=== PATIENT | male | born 1965 | race Caucasian/White ===

== ENCOUNTER 2023-09-17 08:56 | Outpatient (OUT) | payer OTHER, SELFPAY ==
--- NOTE | 2023-09-17 09:05 | XR_ITS ---
The [address] [address] Patient Name: DIPESH RODRIGEZ MRN: [id number] date: 1965 Sex: M Assigned Patient Location: [facility] Current Patient Location: LAB Accession/Order Number: [id number] Exam Date: 09/17/2023 09:10 Report Date: 09/17/2023 09:41 At the request of: JADEN WOLFE Procedure: XR abdomen 1V EXAM: XR abdomen 1V HISTORY: Kidney Stone Z87.442 COMPARISON: None. TECHNIQUE: AP view of the abdomen. FINDINGS: Nonobstructive bowel gas pattern is noted. There are multiple bilateral renal calculi, largest on the right measuring up to 5 mm and largest on the left measuring up to 3 mm. The osseous structures are intact. XR/XR abdomen 1V IMPRESSION: Nonobstructive bowel gas pattern. Bilateral nephrolithiasis. Electronically authenticated by: IVANA GERBER Date: 09/17/2023 09:41
== END 2023-09-17 08:57 | disposition home or self-care (01) ==
PROVIDERS: PCP Family Medicine; Visit Provider Urology
DX: N20.0 Calculus of kidney (principal); Z87.442 Personal history of urinary calculi
CPT/HCPCS: 74018

== ENCOUNTER 2023-10-04 11:14 | Outpatient (REF) | payer OTHER, SELFPAY ==
[2023-10-04 14:54] LABS: Calcium Urine Random 5.6 mg/dL (5.1-21.0); Creatinine Urine Random 48.01 mg/dL (20.00-300.00); Sodium Urine Random 77 mmol/L (30-90)
[2023-10-04 14:58] LABS: Calcium 24 Hour Urine 170.8 mg/24hr (100.0-300.0); Total Volume 24 Hour Urine 3050 mL/24hr
[2023-10-04 14:59] LABS: Sodium 24 Hour Urine 235 mmol/24h (40-220); Total Volume 24 Hour Urine 3050 mL/24hr
[2023-10-05 08:12] LABS: Uric Acid, Urine 18.4 mg/dL (Not Estab.); Uric Acid,Urine 24hr 561.2 mg/24 hr (197.2-1078.7)
[2023-10-05 10:08] LABS: Magnesium, U 8.5 mg/dL (Not Estab.); Magnesium,Urine 24hr 259.3 mg/24 hr (12.0-293.0); Phosphorus, Urine 18.5 mg/dL (Not Estab.); Phosphorus,Urine 24h 564 mg/24 hr (390-1425)
[2023-10-08 17:09] LABS: Citric Acid, U, 24hr 467 mg/24 hr (320-1240); Citric Acid, Urine 153 mg/L (Undefined); Oxalates, Urine 8 mg/L (Undefined); Oxalates, Urine 24hr 24 mg/24 hr (7-44)
== END 2023-10-04 11:15 | disposition home or self-care (01) ==
LOC: LAB 11:14
PROVIDERS: PCP Family Medicine; Visit Provider Urology
DX: N20.0 Calculus of kidney (principal)
CPT/HCPCS: 82340; 82507; 82570; 83735; 83945; 84105; 84300; 84560

== ENCOUNTER 2025-10-22 07:35 | Outpatient (OUT) | payer OTHER, SELFPAY ==
--- NOTE | 2025-10-22 07:52 | ECG_ITS ---
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
--- NOTE | 2025-10-22 08:53 | PM.PRESUREVA ---
History of Present Illness History of Present Illness Chief complaint: right kidney stone Narrative: Patient presents for presurgical testing. Please see HPI from Dr. Jara dated October 15, 2025. Review of Systems ROS Narrative Please see ROS from Dr. Jara dated October 15, 2025. PFSH PFS Medical History (Updated 10/22/25 @ 08:42 by Jessica Banks NP) Neck pain ?M54.2 - Cervicalgia (ICD-10) Back pain ?M54.9 - Dorsalgia, unspecified (ICD-10) Arthritis ?M19.90 - Unspecified osteoarthritis, unspecified site (ICD-10) Shoulder pain ?M25.519 - Pain in unspecified shoulder (ICD-10) History of blood transfusion ?Z92.89 - Personal history of other medical treatment (ICD-10) Hernia ?K46.9 - Unspecified abdominal hernia without obstruction or gangrene (ICD-10) Heartburn ?R12 - Heartburn (ICD-10) Abnormal EKG ?R94.31 - Abnormal electrocardiogram [ECG] [EKG] (ICD-10) Hypertension ?I10 - Essential (primary) hypertension (ICD-10) High cholesterol ?E78.00 - Pure hypercholesterolemia, unspecified (ICD-10) Diabetes ?E11.9 - Type 2 diabetes mellitus without complications (ICD-10) PONV (postoperative nausea and vomiting) ?R11.2 - Nausea with vomiting, unspecified (ICD-10) ?Z98.890 - Other specified postprocedural states (ICD-10) Crohn disease ?K50.90 - Crohn's disease, unspecified, without complications (ICD-10) Right shoulder injury ?S49.91XA - Unspecified injury of right shoulder and upper arm, initial encounter (ICD-10) Mass of colon ?K63.89 - Other specified diseases of intestine (ICD-10) Elevated PSA ?R97.20 - Elevated prostate specific antigen [PSA] (ICD-10) BPH (benign prostatic hyperplasia) ?N40.0 - Benign prostatic hyperplasia without lower urinary tract symptoms (ICD-10) Kidney stones ?N20.0 - Calculus of kidney (ICD-10) Surgical History (Updated 10/22/25 @ 08:42 by Jessica Banks NP) H/O vasectomy ?Z98.52 - Vasectomy status (ICD-10) H/O prostate biopsy ?Z98.890 - Other specified postprocedural states (ICD-10) History of colonoscopy ?Z98.890 - Other specified postprocedural states (ICD-10) H/O umbilical hernia repair ?Z98.890 - Other specified postprocedural states (ICD-10) ?Z87.19 - Personal history of other diseases of the digestive system (ICD-10) H/O foot surgery ?Z98.890 - Other specified postprocedural states (ICD-10) History of total knee arthroplasty ?Z96.659 - Presence of unspecified artificial knee joint (ICD-10) H/O elbow surgery ?Z98.890 - Other specified postprocedural states (ICD-10) H/O shoulder surgery ?Z98.890 - Other specified postprocedural states (ICD-10) S/P cystoscopy with ureteral stent placement ?Z96.0 - Presence of urogenital implants (ICD-10) History of extracorporeal shockwave lithotripsy (ESWL) ?Z98.890 - Other specified postprocedural states (ICD-10) History of carpal tunnel surgery ?Z98.890 - Other specified postprocedural states (ICD-10) History of repair of anterior cruciate ligament of left knee ?Z98.890 - Other specified postprocedural states (ICD-10) H/O hand surgery (~2018) ?Z98.890 - Other specified postprocedural states (ICD-10) H/O excision of mass (~2019) ?Z98.890 - Other specified postprocedural states (ICD-10) Family History (Updated 10/22/25 @ 08:40 by Jessica Banks NP) Other Family history of heart disease Family history of hypertension Family history of myocardial infarction Family history of skin cancer Social History (Updated 10/22/25 @ 08:34 by Jessica Banks NP) Within the past year, how often did you have a drink containing alcohol: never Score interpretation: A score less than 4 is consistent with normal alcohol consumption. 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 Highest level of school completed/degree received: high school graduate Meds Home Medications and Allergies Home Medications ?Medication ?Instructions ?Recorded ?Confirmed ?Type allopurinol 100 mg tablet 100 mg PO DAILY 10/22/25 10/22/25 History amlodipine 10 mg tablet 10 mg PO DAILY 10/22/25 10/22/25 History aspirin 81 mg tablet,delayed 81 mg PO DAILY 10/22/25 10/22/25 History release (Adult Aspirin Regimen) atorvastatin 20 mg tablet 20 mg PO DAILY 10/22/25 10/22/25 History cholecalciferol (vitamin D3) 50 2,000 unit PO DAILY 10/22/25 10/22/25 History mcg (2,000 unit) capsule dapagliflozin propanediol 10 mg 10 mg PO DAILY 10/22/25 10/22/25 History tablet (Farxiga) gabapentin 600 mg tablet 900 mg PO Q8H 10/22/25 10/22/25 History glucosamine-chondroitin 250 mg-200 2 tab PO DAILY 10/22/25 10/22/25 History mg tablet losartan 100 1 tab PO DAILY 10/22/25 10/22/25 History mg-hydrochlorothiazide 12.5 mg tablet multivitamin (One-A-Day Essential 1 tab PO DAILY 10/22/25 10/22/25 History tablet) potassium 99 mg tablet 99 mg PO DAILY 10/22/25 10/22/25 History tamsulosin 0.4 mg capsule 0.4 mg PO BID 10/22/25 10/22/25 History zinc 50 mg capsule 50 mg PO DAILY 10/22/25 10/22/25 History Allergies Allergy/AdvReac Type Severity Reaction Status Date / Time metformin Allergy Diarrhea Verified 10/22/25 08:31 Exam Narrative Exam Narrative: Constitutional: Awake, alert, comfortable, well-appearing, nontoxic, interactive, vital signs as charted Head: Normocephalic, atraumatic Neck: Supple, normal appearance, normal range of motion, no meningeal signs, no lymphadenopathy Respiratory: No respiratory distress, breath sounds clear Cardiovascular: Regular rate and rhythm, strong and regular heart tones Abdomen: Nontender, normal bowel sounds, soft, no CVA tenderness Musculoskeletal: Normal gait, no swelling or edema Skin: No rashes or induration, no lesions, only visible skin inspected Neuro: No neurological deficits, normal sensation Psychiatric: Oriented ?3, normal affect Assessment and Plan Assessment and Plan (1) Kidney stones: Plan Right ESWL scheduled with Dr. Jara October 30, 2025. Left ESWL scheduled with Dr. Jara November 15, 2025.
[2025-10-22 09:15] LABS: Hematocrit 44.1 % (42.0-54.0); Hemoglobin 15.2 g/dL (14.0-18.0); Immature Granulocytes Abs Auto 0.01 10^3/uL (0.00-0.03); Immature Granulocytes Pct Auto 0.1 % (0.0-0.5); Lymphocytes Absolute Auto 2.0 10^3/uL (1.2-3.8); Mean Corpuscular HGB Conc 34.5 g/dL (29.9-35.2); Mean Corpuscular Hemoglobin 33.1 pg (25.9-34.0); Mean Corpuscular Volume 96.1 fL (80.0-94.0); Platelet Count 201 10^3/uL (150-450); Red Blood Count 4.59 10^6/uL (4.70-6.10); White Blood Count 8.0 10^3/uL (4.0-11.0)
[2025-10-22 09:25] LABS: INR 1.04; Partial Thromboplastin Time 27.9 sec (22.3-36.2); Prothrombin Time 10.9 sec (9.0-11.6)
[2025-10-22 09:51] LABS: Anion Gap 11.4; Blood Urea Nitrogen 15.0 mg/dL (7.0-18.0); Calcium 9.2 mg/dL (8.5-10.1); Carbon Dioxide 27.7 mmol/L (21.0-32.0); Chloride 106 mmol/L (98-107); Estimated GFR (African America >60 (>=60 mL/min/1.73m^2); Estimated GFR (Non-African Ame >60 (>=60 mL/min/1.73m^2); Glucose 119 mg/dL (74-106); Potassium 4.1 mmol/L (3.5-5.1); Sodium 141 mmol/L (136-145)
== END 2025-10-22 07:36 | disposition home or self-care (01) ==
LOC: PST 07:35
PROVIDERS: PCP Family Medicine; Visit Provider Urology
DX: Z01.810 Encounter for preprocedural cardiovascular examination (principal); Z01.812 Encounter for preprocedural laboratory examination; Z01.818 Encounter for other preprocedural examination; N20.0 Calculus of kidney
CPT/HCPCS: 36415; 80048; 85025; 85610; 85730; 93005; G0463

== ENCOUNTER 2025-10-22 09:26 | Outpatient (OUT) | payer OTHER, SELFPAY | END 2025-10-22 09:27 | disposition home or self-care (01) | LOC: PST 09:26 | PROVIDERS: PCP Family Medicine; Visit Provider Urology | DX: Z01.818 Encounter for other preprocedural examination (principal); N20.0 Calculus of kidney; E11.9 Type 2 diabetes mellitus without complications; I10 Essential (primary) hypertension; N40.0 Benign prostatic hyperplasia without lower urinary tract symptoms; R97.20 Elevated prostate specific antigen [PSA] ==

== ENCOUNTER 2025-10-30 06:43 | Day surgery (SDC) | payer OTHER, SELFPAY ==
--- OUTSIDE RECORDS SUMMARY | 2025-10-15 23:59 | XMS_ITS | Continuity of Care Document ---
Author Organization [facility] Address [address] [place] [address] Care Team Providers Care T Rail Turner Name Role Phone JASON ROBLERO Primary Care Physician Unavail able Encounter FT_PALLAVI [id number] Date(s): 10/15/25 - 10/15/25 [facility] [address] [place] [address]- Encounter Diagnosis Elevated PSA(Discharge Diagnosis) - 10/15/25 Kidney stones(Discharge Diagnosis) - 10/15/25 BPH with urinary obstruction(Discharge Diagnosis) - 10/15/25 Discharge Disposition: Home (Routine DC) Attending Physician: Shady WOLFE MD Encounter Type: Clinic Allergies, Adverse Reactions, Alerts SubstanceCriticalitySeverityReactionReaction SeverityStatusmetFORMINUnknown Active Treatment Plan Future Appointments Appointment Date:10/21/2026 08:45:00 AM Scheduled Provider:Shady WOLFE MD Location:[facility] Appointment Type:URO Office Visit Diagnostic Tests Pending * PSA Total 10/15/25 Medications allopurinol 100 mg Tab 100 mg = 1 tab(s), Oral, BID, Refills(s) 0, Other (see comment) Start Date: 11/08/01 Status: Ordered Medication Dispense Status: Completed Total Allowed Fills: 1 Fills Dispensed: 0 amLODIPine 10 mg Tab mg tab(s), Oral, Daily, Refills(s) 0 Start Date: 09/22/21 Status: Ordered Medication Dispense Status: Completed Total Allowed Fills: 1 Fills Dispensed: 0 atorvastatin 20 mg Tab mg tab(s), Oral, Daily, Refills(s) 0 Start Date: 09/22/21 Status: Ordered Medication Dispense Status: Completed Total Allowed Fills: 1 Fills Dispensed: 0 glipiZIDE 10 mg Tab 10 mg = 1 tab(s), Oral, Daily, Refills(s) 0, Blood glucose Start Date: 11/08/09 Status: Ordered Medication Dispense Status: Completed Total Allowed Fills: 1 Fills Dispensed: 0 hydrochlorothiazide-losartan 12.5 mg-100 mg oral tablet 1 tab(s), Oral, Daily, Refill(s) 0, High blood pressure Start Date: 11/08/13 Status: Ordered Medication Dispense Status: Completed Total Allowed Fills: 1 Fills Dispensed: 0 melatonin Once a day (at bedtime), Refills(s) 0 Start Date: 09/22/21 Status: Ordered Medication Dispense Status: Completed Total Allowed Fills: 1 Fills Dispensed: 0 meloxicam 15 mg oral tablet mg tab(s), Oral, Daily, Refills(s) 0 Start Date: 09/22/21 Status: Ordered Medication Dispense Status: Completed Total Allowed Fills: 1 Fills Dispensed: 0 Osteo Bi-Flex Refill(s) 0 Start Date: 09/22/21 Status: Ordered Medication Dispense Status: Completed Total Allowed Fills: 1 Fills Dispensed: 0 pioglitazone Oral, Daily, Refills(s) 0 Start Date: 08/11/19 Status: Ordered Medication Dispense Status: Completed Total Allowed Fills: 1 Fills Dispensed: 0 tamsulosin 0.4 mg Cap 0.4 mg = 1 cap(s), Oral, BID, # 180 cap(s), Refills(s) 3, Pharmacy: [facility] [id number], 182, cm, 10/15/25 9:57:00 EST, Height/Length Dosing, 110, kg, 10/15/25 9:57:00 EST, Weight Dosing Start Date: 10/15/25 Status: Ordered Medication Dispense Status: Completed Quantity: 180.0 Unit: cap(s) Total Allowed Fills: 4 Fills Dispensed: 0 Vitamin C Daily, Refills(s) 0 Start Date: 09/22/21 Status: Ordered Medication Dispense Status: Completed Total Allowed Fills: 1 Fills Dispensed: 0 Problem List ConditionConfirmationCourseEffective DatesStatusHealth StatusInformantArthritis ConfirmedActiveBPH (benign prostatic hyperplasia)ConfirmedActiveBPH with urinary obstructionConfirmedActiveDiabetesConfirmedActiveGross hematuriaConfirmed< 05/12/19ResolvedHistory of kidney stonesConfirmed< 05/12/19ResolvedPersonal history of kidney stonesConfirmedActiveHypertensionConfirmedActiveRenal stoneConfirmed ActiveKidney stonesConfirmedActiveMicroscopic hematuriaConfirmedActiveNocturia ConfirmedActiveProstatitisConfirmedActiveElevated PSAConfirmedActiveUrinary retentionConfirmed< 05/12/19Resolved Procedures ProcedureDateRelated DiagnosisBody SiteStatusArthroplasty of knee right04/12/24 CompletedRepair of umbilical jcamrx84/2023CompletedTransrectal biopsy of prostate using ultrasound (US) guidance02/01/18CompletedStone Trheyorsuboq01/1/10 CompletedESWL of lgjoam48/13/09CompletedBunionectomy left footCompletedClosed xzgxitnpzjluilxtDkexgajwyIrswhhzrjkwOuzvnmgicArjyegcubi8BrkprdankXtfelsen injury 2CompletedVasectomyCompleted 1Ureteroscopy, Holmium Laser x5 2Following pelvic crush injury Social History Social History TypeResponseSmoking StatusNever (less than 100 in lifetime);Never entered on: 10/15/25Birth SexMaleSex RepresentationMale (finding) Hospital Discharge Instructions Patient Education 10/15/2025 10:42:26 Laser Therapy for Kidney Stones, Care After Laser Therapy for Kidney Stones, Care After After laser therapy for kidney stones, it is common to have: ??? Pain. ??? A burning feeling when you pee (urinate). ??? Small amounts of blood in your pee (urine). ??? A need to pee a lot. ??? Parts of the kidney stone in your pee. ??? Mild discomfort in your back when you pee. You may have this if you had a small mesh tube (stent) placed during the procedure. Follow these instructions at home: Medicines ??? Take xblz-sxb-hljsujq and prescription medicines only as told by your health care provider. ??? If you were prescribed antibiotics, take them as told by your provider. Do not stop using the antibiotic even if you start to feel better. ??? Ask your provider if the medicine prescribed to you: ??? Requires you to avoid driving or using machinery. ??? Can cause constipation. You may need to take these actions to prevent or treat constipation: ??? Drink enough fluid to keep your pee pale yellow. ??? Take szaz-uqd-bviaogl or prescription medicines. ??? Eat foods that are high in fiber, such as beans, whole grains, and fresh fruits and vegetables. ??? Limit foods that are high in fat and processed sugars, such as fried or sweet foods. Activity ??? If you were given a sedative during the procedure, it can affect you for several hours. Do not drive or operate machinery until your provider says that it is safe. ??? Return to your normal activities as told by your provider. Ask your provider what activities are safe for you. General instructions ??? Your provider may recommend that you drink a lot of water for a few hours after your procedure.If you have heart or kidney disease, ask your provider how much you should drink. ??? You may be asked to strain your pee to collect any stone pieces that you pass. Your provider may have these pieces tested. ??? Do not take baths, swim, or use a hot tub until your provider approves. Ask your provider if you may take warm baths to soothe the burning. ??? Keep all follow-up visits. If you have a stent, you will need to go back to your provider to have it removed. Your provider may give you more instructions. Make sure you know what you can and cannot do. Contact a health care provider if: ??? You have pain or a burning feeling that lasts for more than 2 days. ??? You feel nauseous. ??? You vomit more and more often. ??? You have trouble peeing. ??? You have pain that gets worse or does not get better with medicine. ??? You have a fever or shaking chills. Get help right away if: ??? You cannot pee, even when your bladder feels full. ??? You faint. ??? You have chest pain, shortness of breath, or cough up blood. ??? You have: ??? Bright red blood or blood clots in your pee. ??? Severe pain or discomfort. ??? Pain in your abdomen. ??? Swelling in your legs. These symptoms may be an emergency. Get help right away. Call 911. ??? Do not wait to see if the symptoms will go away. ??? Do not drive yourself to the hospital. This information is not intended to replace advice given to you by your health care provider. Make sure you discuss any questions you have with your health care provider. Document Revised: 06/25/2023 Document Reviewed: 06/25/2023 [employer] Patient Education ?? 2023 [facility]. 10/15/2025 10:42:26 Laser Therapy for Kidney Stones Laser Therapy for Kidney Stones Laser therapy for kidney stones is a procedure to break up rock-like masses that form inside the kidneys (kidney stones). It is done using a device that beams a strong light (laser) on the kidney stones. This breaks the stones up into small pieces. These small pieces may leave your body when you pee (urinate) or may be taken out during the procedure. You may need laser therapy if you have kidney stones that are painful or that are stopping you frombeing able to pee. Tell a health care provider about: ??? Any allergies you have. ??? All medicines you are taking, including vitamins, herbs, eye drops, creams, and mnzi-lwa-wavukph medicines. ??? Any problems you or family members have had with anesthesia. ??? Any bleeding problems you have. ??? Any surgeries you have had. ??? Any medical conditions you have. ??? Whether you are or may be . What are the risks? Your health care provider will talk with you about risks. These may include: ??? Infection. ??? Bleeding. ??? Allergic reactions to medicines. ??? Damage to: ??? The part of your body that drains pee (urine) from the bladder (urethra). ??? The bladder. ??? The tube that connects the bladder to the kidneys (ureter). ??? Urinary tract infection (UTI). ??? Urethral stricture. This is when the urethra is narrowed by scarring. ??? Trouble peeing. ??? Blockage of the kidney. This may be caused by a piece of kidney stone. What happens before the procedure? When to stop eating and drinking Follow instructions from your provider about what you may eat and drink. These may include: ??? 8 hours before the procedure ??? Stop eating most foods. Do not eat meat, fried foods, or fatty foods. ??? Eat only light foods, such as toast or crackers. ??? All liquids are okay except energy drinks and alcohol. ??? 6 hours before the procedure ??? Stop eating. ??? Drink only clear liquids, such as water, clear fruit juice, black coffee, plain tea, and sportsdrinks. ??? Do not drink energy drinks or alcohol. ??? 2 hours before the procedure ??? Stop drinking all liquids. ??? You may be allowed to take medicines with small sips of water. ??? If you do not follow your provider's instructions, your procedure may be delayed or canceled. Medicines ??? Ask your provider about: ??? Changing or stopping your regular medicines. These include any diabetes medicines or blood thinners you take. ??? Taking medicines such as aspirin and ibuprofen. These medicines can thin your blood. Do not take them unless your provider tells you to. ??? Taking lubr-ddk-yfhbard medicines, vitamins, herbs, and supplements. Tests ??? You may have a physical exam before the procedure. You may also have tests done. These may include: ??? Imaging tests. ??? Blood or pee tests. Surgery safety ??? Ask your provider: ??? How your surgery site will be marked. ??? What steps will be taken to help prevent infection. These steps may include: ??? Removing hair at the surgery site. ??? Washing skin with a soap that kills germs. ??? Taking antibiotics. General instructions ??? Do not use any products that contain nicotine or tobacco for at least 4 weeks before the procedure. These products include cigarettes, chewing tobacco, and vaping devices, such as e-cigarettes. If you need help quitting, ask your provider. ??? If you will be going home right after the procedure, plan to have a responsible adult: ??? Take you home from the hospital or clinic. You will not be allowed to drive. ??? Care for you for the time you are told. What happens during the procedure? An IV will be inserted into one of your veins. ??? You will be given: ??? A sedative. This helps you relax. ??? Anesthesia. This keeps you from feeling pain. It will make you fall asleep for surgery. ??? A tool with a camera on the end (ureteroscope) will be put into your urethra. It will be moved through your bladder to your kidney. It will send pictures to a screen in the operating room. This will show what parts of your kidney need to be treated. ??? A tube will be put through the ureteroscope. It will be moved into your kidney. ??? The laser device will be put into your kidney through the tube. The laser will be used to breakup the kidney stones. ??? A tool with a tiny wire basket may be put through the tube into your kidney. This can help remove the small pieces of the kidney stone. ??? A small mesh tube (stent) may be placed to allow your kidney to drain. ??? The tube and ureteroscope will be taken out at the end of the surgery. The procedure may vary among providers and hospitals. What happens after the procedure? Your blood pressure, heart rate, breathing rate, and blood oxygen level will be monitored untilyou leave the hospital or clinic. ??? If you had a stent placed, it may have a string that will be secured to your skin. This helps your provider remove the stent. ??? You may be given a strainer to collect any stone pieces that you pass in your pee. Your provider may have these tested. This information is not intended to replace advice given to you by your health care provider. Make sure you discuss any questions you have with your health care provider. Document Revised: 06/25/2023 Document Reviewed: 06/25/2023 [employer] Patient Education ?? 2023 [employer] Follow Up Care 09/22/2024 08:43:32 With:AIDEN ANDREWS, Shady Danielson, URL Address: [address] [place] [phone] When: Unknown Comments:sched??ESWL (R then L), f/uu in 1??yr PSA and KUB Patient Care team information Care Team Personnel Name: ANNIKA ANDREWS, JASON Valenzuela Position: FT Physician Member Role: Primary Care Physician Address: [address] [place] [address] Care Team Related Persons Name: RODRIGEZSHAKIRA BARLOW Name: SHAKIRA RODRIGEZ Insurance Providers Guarantor name: DIPESH RODRIGEZ Health Plan Information #: 1 Payer: [employer] Payer Identifier: [id number] Member Number: [id number] Group Number: [id number] Subscriber Identifier: [id number] Relationship to Subscriber: self Coverage Type: PRIVATE HE[employer] INSURANCE Coverage Verification Date: 25 Telecom: [phone] Address: [address] [address]
--- OUTSIDE RECORDS SUMMARY | 2025-10-16 09:30 | XMS_ITS | Encounter Summary ---
Author Organization [facility] Address [address] [place] [address] Care Team Providers Care Route Returner Name Role Phone Gilberto Dee MD Primary Care Provider + [phone] Reason for Visit * ReasonCommentsPain Encounter Details DateTypeDepartmentCare Team (Latest Contact Info)Jqbjaijdtmg32/09/2025 9:30 AM ESTOffice Visit [facility] [address] [place] [address] Jr. Napoleon Colindres, DO [address] [address] Traumatic complete tear of right rotator cuff, initial encounter (Primary Dx); Internal derangement of right shoulder Social History Tobacco UseTypesPacks/DayYears UsedDateSmoking Tobacco: NeverSmokeless Tobacco: NeverAlcohol UseStandard Drinks/WeekCommentsNot Currently0 (1 standard drink = 0.6 oz pure alcohol)Caffeine intake: chocolateHumiliation, Afraid, Rape, and Kick questionnaireAnswerDate RecordedWithin the last year, have you been afraid of your partner or ex-partner?No08/01/2023Within the last year, have you been humiliated or emotionally abused in other ways by your partner or ex-partner?No 08/01/2023Within the last year, have you been kicked, hit, slapped, or otherwise physically hurt by your partner or ex-partner?No08/01/2023Within the last year, have you been raped or forced to have any kind of sexual activity by your part ner or ex-partner?No08/01/2023Social Connection and Isolation PanelAnswerDate RecordedIn a typical week, how many times do you talk on the phone with family, friends, or neighbors?More than three times a week08/01/2023How often do you get together with friends or relatives?Once a week08/01/2023How often do you attend evangelical or yazidi services?Patient ovlzsyer51/24/2023o you belong to any clubs or organizations such as evangelical groups, [employer], [employer] or athletic [employer], or school groups?No08/01/2023How often do you attend meetings of the clubs or organizations you belong to?Patient bnqleahc35/24/2023re you , , , , never , or living with a partner? 08/01/2023UDIT-CAnswerDate RecordedQ1: How often do you have a drink containing alcohol?Never08/01/2023Q2: How many drinks containing alcohol do you have on a typical day when you are drinking?Patient does not drink08/01/2023Q3: How often do you have six or more drinks on one occasion?Never08/01/2023Overall Financial Resource Strain (CARDIA)AnswerDate RecordedHow hard is it for you to pay for the very basics like food, housing, medical care, and heating?Not hard at all 08/01/2023HQ-2AnswerDate RecordedPatient Health Questionnaire-2 Score0 09/03/2025[facility] [place] [facility] - Occupational Stress QuestionnaireAnswerDate RecordedDo you feel stress - tense, restless, nervous, or anxious, or unable to sleep at night because yourmind is troubled all the time - these days?Not at all08/01/2023Exercise Vital SignAnswerDate RecordedOn average, how many days per week do you engage in moderate to strenuous exercise (like a brisk walk)?2 days08/01/2023On average, how many minutes do you engage in exercise at this level?10 min08/01/2023Hunger Vital SignAnswerDate Recorded Within the past 12 months, you worried that your food would run out before you got the money to buymore.Never true08/01/2023Within the past 12 months, the food you bought just didn't last and you didn't have money to get more.Never true 08/01/2023RAPARE - TransportationAnswerDate RecordedIn the past 12 months, has lack of transportation kept you from medical appointments or from getting medications?No08/01/2023In the past 12 months, has lack of transportation kept you from meetings, work, or from getting things needed for daily living?No 08/01/2023Housing Stability Vital SignAnswerDate RecordedIn the last 12 months, was there a time when you were not able to pay the mortgage or rent on time?No 08/01/2023In the last 12 months, how many places have you lived?In the last 12 months, was there a time when you did not have a steady place to sleep or slept in ashelter (including now)?No08/01/2023Sex and Gender InformationValueDate RecordedSex Assigned at BirthNot on fileLegal SexMale 01/20/2023 6:53 PM EDTGender IdentityNot on fileSexual OrientationNot on file documented as of this encounter Progress Notes * Jr. Napoleon Colindres, - 10/16/2025 9:30 AM EST Images from the original note were not included. HISTORY OF PRESENT ILLNESS: EST PT Bernardo Powers is an 59 y.o. @ male. *NOW [facility]* EST PT WITH RIANNA- CRISTIAN RT SHOULDER- HERE TO DISCUSS POSSIBLE SURGERY PT HAS AN APPT 10/19/25 WITH [facility] XRAY RT SHOULDER, [facility] 09/25/25 MRI RT SHOULDER 10/09/25 EPIC MRI [facility] 07/20/22 DEPO INJECTION 06/29/22, 09/27/25 MDP 07/06/22 HX RT SHOULDER SCOPE [address] COLINDRES CONTINUES TO HAVE PAIN UPPER ARM/BICEP- +WEAKNESS- HAS TO LIFT WITH OPPOSITE ARM- +TYLENOL/GABAPENTIN- +WAKES HS- CONSTANT PAIN- INCREASE PAIN WITH ACTIVITY CHRIS: 11/13/24 HAD A FALL. HEARD A CRACK AND HAS LIMITED ROM SINCE. RT HANDED. ALLERGIES: Allergies[1] HOME MEDICATIONS: Current Outpatient Medications Medication Instructions acetaminophen (TYLENOL) 500 mg, Every 6 hours PRN allopurinol (ZYLOPRIM) 100 mg, Oral, Every 24 hours amLODIPine (NORVASC) 10 mg, Oral, Daily aspirin EC 81 MG EC tablet 2 tablet Orally Once a day - for 30 day(s) atorvastatin (LIPITOR) 20 mg, Oral, Nightly cholecalciferol (Vitamin D-3) 250 MCG (97652 UT) capsule Every 24 hours dapagliflozin (FARXIGA) 10 mg, Oral, Daily diazePAM (VALIUM) 5 mg, 2 times daily gabapentin (NEURONTIN) 600 mg, Oral, 3 times daily LORazepam (ATIVAN) 1 mg, Oral, See admin instructions, 1 by mouth 1 hour prior to MRI losartan-hydroCHLOROthiazide (Hyzaar) 100-12.5 MG tablet Take 1 tablet daily meloxicam (MOBIC) 15 mg, Daily Misc Natural Products (Osteo Bi-Flex Triple Strength) tablet as directed Orally mupirocin (Bactroban) 2 % ointment potassium chloride CR (Klor-Con M10) 10 MEQ ER tablet 10 mEq, 2 times daily tamsulosin (Flomax) 0.4 MG 24 hr capsule 1 capsule, 2 times daily zinc gluconate 50 MG tablet 1 tablet Orally every other day PHYSICAL EXAM: Shoulder Musculoskeletal Exam Inspection Right Right shoulder inspection is normal. Ecchymosis: none Peripheral edema: none Atrophy: none Masses: none Palpation Right Crepitus: no crepitus Increased warmth: none Tenderness: present Anterior shoulder: mild AC joint: mild Proximal biceps: moderate Lateral arm: mild Range of Motion Right Right shoulder range of motion is normal. Active ROM: pain. Passive ROM: pain. Active forward elevation: 90. Passive forward elevation: 160. Shoulder active abduction: 90. Passive abduction: 160. Active external rotation at side: 40. Passive external rotation at side: 50. Internal rotation: L1. Strength Right External rotation: 5/5. Internal rotation: 5/5. Abduction: 3/5. Biceps: 5/5. Triceps: 5/5. Neurovascular Right Radial pulse: normal and 2+ Capillary refill: <3 sec Axillary nerve sensory distribution: normal Scapula Right Right shoulder scapula is normal. Position: normal Winging: none Special Tests Right Rotator Cuff Signs Neer's test: positive Lantigua test: positive Painful arc test: positive Biceps/samia Signs Speed's test: positive General Constitutional: appears stated age Neurological: alert and oriented x3 Vitals: There is no height or weight on file to calculate BMI. Tobacco Use: Low Risk (10/16/2025) Patient History Smoking Tobacco Use: Never Smokeless Tobacco Use: Never Passive Exposure: Not on file Alcohol Use: Not At Risk (08/01/2023) AUDIT-C Frequency of Alcohol Consumption: Never Average Number of Drinks: Patient does not drink Frequency of Binge Drinking: Never IMAGING: Procedures No orders of the defined types were placed in this encounter. ASSESSMENT: ICD-10-CM 1. Traumatic complete tear of right rotator cuff, initial encounter S46.011A 2. Internal derangement of right shoulder M24.811 PLAN: We have discussed his symptoms physical exam and MRI at length today The results of which are below. We have discussed his case he is trying to get Mr [employer]'s comp approval for arthroscopy of his right shoulder for rotator cuff tear. We have discussed his restrictions and home exercise program in the interim. Once he obtains [employer] comp approval he will contact us and we will schedule him for an appointment with me and discuss possible surgical intervention on his right shoulder. IMPRESSION: Full-thickness rotator cuff tearing involving supraspinatus and subscapularis as discussed. Questions answered in laymen terms at the bedside. The diagnosis, home exercise plan and any ongoing restrictions/ recommendations reviewed. If unable to be reached in office, I recommend evaluation at nearest Emergency Room if any symptoms worsened or new symptoms develop for requiring urgent evaluation. [1] Allergies Allergen Reactions Metformin Diarrhea documented in this encounter Plan of Treatment DateTypeDepartmentCare Team (Latest Contact Info)Qjvsbovmqqa82/20/2026 8:00 AM EDTOffice Visit [facility] [place] [address] [facility] [address] [facility] [address] [place] [address] Gilberto Dee MD [address] [facility] [address] [place] [address] documented as of this encounter Visit Diagnoses Diagnosis Traumatic complete tear of right rotator cuff, initial encounter- Primary Internal derangement of right shoulder documented in this encounter Care Teams Team MemberRelationshipSpecialtyStart DateEnd Date Gilberto Dee MD [address] [place] [phone] PCP - GeneralFamily Medicine05/19/23documented as of this encounter
[2025-10-22 08:50] VITALS: BP 135/79; PULSE 72; TEMP 36.3; O2SAT 97; BMI 32.4
--- OUTSIDE RECORDS SUMMARY | 2025-10-25 15:00 | XMS_ITS | Encounter Summary ---
Author Organization [facility] Address [address] [place] [address] Care Team Providers Care Vp Human Resources Name Role Phone Gilberto Dee MD Primary Care Provider [phone] Shady Jara MD Unavailable [phone] Sasha Longo MD Unavailable [phone] Tony Thomas CHIEF DEPUTY SHERIFF Unavailable [phone] Rigo Barkley PT Unavailable [phone] Reason for Visit * ReasonCommentsFollow-up Encounter Details DateTypeDepartmentCare Team (Latest Contact Info)Llwjrtboylq88/18/2025 3:00 PM ESTOffice Visit N[facility] [address] Medicine 112 [facility] 100 [place] [address] Gilberto Dee MD 112 [facility] 100 [place] [address] (Fax) Multiple kidney stones (Primary Dx); 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); Benign essential hypertension; Type 2 diabetes mellitus with other diabetic kidney complication (HCC); Preoperative evaluation to rule out surgical contraindication Social History Tobacco UseTypesPacks/DayYears UsedDateSmoking Tobacco: NeverSmokeless [...] relatives?Once a week08/01/2023How often do you attend restoration or sabianism services?Patient hdeqxuzh59/24/2023o you belong to any clubs or organizations such as restoration groups, unions, [place] or athletic sandi ups, or school groups?No08/01/2023How often do you attend meetings of the clubs or organizations you belong to?Patient jzovzzcu54/24/2023re you , , , , never , [...] at all 08/01/2023HQ-2AnswerDate RecordedPatient Health Questionnaire-2 Score0 10/25/2025[facility] [place] of Occupational Health - Occupational Stress QuestionnaireAnswerDate [...] steady place to sleep or slept in [facility] (including now)?No08/01/2023Sex and Gender InformationValueDate RecordedSex Assigned at BirthNot on fileLegal SexMale 01/20/2023 6:53 PM EDTGender IdentityNot on fileSexual OrientationNot on file documented as of this encounter Last Filed Vital Signs Vital SignReadingTime TakenCommentsBlood Fkdvmxei368/7010/25/2025 2:56 PM EST Dzcnj696510/25/2025 2:56 PM ESTTemperature--Respiratory Rate--Oxygen Xbmwnqfvow90% 10/25/2025 2:56 PM ESTInhaled Oxygen Concentration--Fflxgl475 kg (264 lb) 10/25/2025 2:56 PM FGXJzopxe399.9 cm (6')10/25/2025 2:56 PM ESTBody Mass Index 35.812 2:56 PM ESTdocumented in this encounter Functional Status * Over the past 2 weeks, how often have you been bothered by any of the following problems?QuestionAnswerDate of AssessmentAuthorLittle interest or pleasure in doing thingsNot at all10/25/2025 3:58 PM Jose Alberto Darlene, MA Feeling down, depressed, or hopelessNot at all10/25/2025 3:58 PM Jose Alberto February, [facility]ENTERatient Health Questionnaire-2 Yfigh82612/26/2024 3:58 PM Jose Alberto Darlene, MA documented as of this encounter Progress Notes * Gilberto Dee MD - 10/25/2025 3:00 PM EST Images from the original note were not included. Patient ID: Bernardo Powers is a 59 y.o. male who presents for: Pt is having Lithotripsy with Dr Jara on 10/30 and then the other side on 11/15 at [facility]. He had his PAT testing done last week and was previously advised by their physician assistant surgery to hold his aspirin. Review of Systems Constitutional: Negative for activity change and fatigue. Respiratory: Negative for cough, shortness of breath and wheezing. Cardiovascular: Negative for chest pain, palpitations and leg swelling. Neurological: Negative for light-headedness and headaches. Objective The patient is pleasant and in no acute distress. Both eyes appear grossly normal without obvious lid pathology or icterus. Both ears hearing is grossly intact. The neck is supple and trachea is midline. No masses are appreciated. The anterior cervical lymphatics demonstrates shoddy bilateral nontender lymphadenopathy. There is no supraclavicular lymphadenopathy. The heart is regular rate and rhythm without S3, S4. No murmur. The patient has normal respiratory pattern. The breath sounds are symmetrical without evidence of rhonchi or rales. No wheezing. The skin is warm and dry. The lower extremities have trace Pretibial edema. Neurologic screening exam is nonfocal. The patient is alert. There is no overt gross evidence of cognitive impairment The patient has good eye contact and speech is clear. Appropriate affect. 09/03/2025 8:08 AM 06/11/2025 8:32 AM 05/07/2025 1:20 PM 04/09/2025 3:50 PM Vitals BMI 35.8 kg/m2 35.8 kg/m2 35.8 kg/m2 35.8 kg/m2 BSA (m2) 2.47 m2 2.47 m2 2.47 m2 2.47 m2 Systolic 130 Diastolic 78 Heart Rate 83 SpO2 97 % Height (in) 6' 6' 6' 6' Weight (lb) 264 264 264 264 Visit Report Report Report Report Report Allergies Allergen Reactions Metformin Diarrhea Current Outpatient Medications on File Prior to Visit Medication Sig Dispense Refill acetaminophen (Tylenol) 500 MG tablet Take 500 mg by mouth every 6 (six) hours if needed allopurinol (Zyloprim) 100 MG tablet Take 1 tablet (100 mg) by mouth 1 (one) time each day at the same time 30 tablet 1 amLODIPine (Norvasc) 10 MG tablet Take 1 tablet (10 mg) by mouth Daily 90 tablet 1 aspirin EC 81 MG EC tablet 2 tablet Orally Once a day - for 30 day(s) atorvastatin (Lipitor) 20 MG tablet Take 1 tablet (20 mg) by mouth at bedtime 30 tablet 1 cholecalciferol (Vitamin D-3) 250 MCG (73861 UT) capsule 1 (one) time each day at the same time. dapagliflozin (Farxiga) 10 MG Take 1 tablet (10 mg) by mouth Daily 90 tablet 1 diazePAM (Valium) 5 MG tablet Take 5 mg by mouth in the morning and 5 mg in the evening. gabapentin (Neurontin) 600 MG tablet Take 1 tablet (600 mg) by mouth in the morning and 1 tablet (600 mg) in the evening and 1 tablet (600 mg) before bedtime. 270 tablet 1 LORazepam (Ativan) 1 MG tablet Take 1 tablet (1 mg) by mouth See administration instructions 1 by mouth 1 hour prior to MRI 1 tablet 0 losartan-hydroCHLOROthiazide (Hyzaar) 100-12.5 MG tablet Take 1 tablet daily 30 tablet 1 meloxicam (Mobic) 15 MG tablet Take 15 mg by mouth Daily Misc Natural Products (Osteo Bi-Flex Triple Strength) tablet as directed Orally mupirocin (Bactroban) 2 % ointment potassium chloride CR (Klor-Con M10) 10 MEQ ER tablet Take 10 mEq by mouth in the morning and 10 mEq in the evening. tamsulosin (Flomax) 0.4 MG 24 hr capsule 1 capsule in the morning and 1 capsule before bedtime. zinc gluconate 50 MG tablet 1 tablet Orally every other day No current facility-administered medications on file prior to visit. 1. Multiple kidney stones (Primary) Being managed by Dr. Jara for surgery as above. He denies any anesthetic or postoperative complications from previous surgeries other than some nausea. 2. 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 After reviewing the medical record; We have an EKG report from 2022 describing the right bundle branch block. We have an actual copy of an EKG from 2023 that was done preoperatively for his right knee arthroplasty , this is essentially identical to his current EKG. The patient is otherwise asymptomatic. Further cardiac evaluation is not warranted. 3. Benign essential hypertension Chronic problem, stable, to goal. 4. Type 2 diabetes mellitus with other diabetic kidney complication (HCC) Chronic problem, stable, to goal. Units 2 mo ago (08/10/25) 8 mo ago (02/26/25) 11 mo ago (11/29/24) 1 yr ago (06/20/24) 1 yr ago (03/07/24) 1 yr ago (03/07/24) 1 yr ago (01/13/24) Hemoglobin A1C <5.7 % 6.8 High 6.8 High CM 6.9 High R, CM 6.8 High R, CM 5. Preoperative evaluation to rule out surgical contraindication There are no known contraindications to the above proposed procedure. The patient has held his aspirin dose as of yesterday. Please Note: Portions of this chart may have been created using voice recognition software. Occasionally a wrong-word or sound-like substitutions may have occurred due to inherent limitations of the voice recognition software. Please read the chart carefully and recognize, using context, where the substitutions may have occurred. 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 Benign essential hypertension Essential hypertension, benign Type 2 diabetes mellitus with other diabetic kidney complication (HCC) Preoperative evaluation to rule out surgical contraindication documented in this encounter Care Teams Team MemberRelationshipSpecialtyStart DateEnd Date Gilberto Dee MD 112 [facility] [address] [place] [address] PCP - GeneralFamily Medicine05/19/23 Shady Jara MD [address] [place] [address] Referring BspkdtfgiJdbawqw08/17/25 Sasha Longo MD [address] [place] [address] Referring PhysicianPain Erqktghx27/17/25 Tony Thomas, DINA [address] [place] [address] Nurse PractitionerOrthopaedic Eqkaloz09/17/25 Rigo Barkley, PT [address] [place] [address] Physical TherapistPhysical Eylmbtc51/17/25documented as of this encounter
[2025-10-30] VITALS (12 sets, daily range): BP systolic 133–168; BP diastolic 73–94; PULSE 68–97; TEMP 36.3; O2SAT 93–99; BMI 32.1
--- OUTSIDE RECORDS SUMMARY | 2025-10-30 06:47 | XMS_ITS | Encounter Summary ---
Author Organization [facility] Address [address] [place] [address] Care Team Providers Care Cdl Flatbed Truck Driver Name Role Phone Gilberto Dee MD Primary Care Provider + [phone] Encounter Details DateTypeDepartmentCare Team (Latest Contact Info)Cfiortvncgc94/15/2025linisync Result Encounter [facility] External Department Unsolicited Provider, Generic External Data Social History Tobacco UseTypesPacks/DayYears UsedDateSmoking Tobacco: NeverSmokeless [...] relatives?Once a week08/01/2023How often do you attend alevism or pentecostal services?Patient jdqiubdw96/24/2023Do you belong to any clubs or organizations such as alevism groups, unions, fraternal or athletic sandi ups, or school groups?No08/01/2023How often do you attend meetings of the clubs or organizations you belong to?Patient vzkbasus06/24/2023re you , , , , never , [...] at all 08/01/2023HQ-2AnswerDate RecordedPatient Health Questionnaire-2 Score0 09/03/2025[facility] [place] of Occupational Health - Occupational Stress QuestionnaireAnswerDate [...] you from medical appointments or from getting medications?No09/24/2023In the past 12 months, has lack of [...] on file documented as of this encounter Plan of Treatment DateTypeDepartmentCare Team (Latest Contact Info)Whnnstossij22/20/2026 8:00 AM EDTOffice Visit [facility] [address] Medicine 112 [facility] 100 [place] [address] Gilberto Dee MD 112 [facility] 100 [place] [address] documented as of this encounter Procedures Procedure NamePriorityDate/TimeAssociated DiagnosisCommentsSRMCOH PROTHROMBIN TIME INR W/O ACVIDjsozny63/15/2025 8:45 AM EST CCF HZTGBslztud88/15/2025 8:45 AM EST ALL CBC WITH AUTO ZPRSZebibwc69/15/2025 8:45 AM EST ALL BASIC METABOLIC WHFFDBrfbhqb18/15/2025 8:45 AM EST documented in this encounter Results * CCF APTT (10/22/2025 8:45 AM EST)ComponentValueRef RangeTest MethodAnalysis TimePerformed AtPathologist SignaturePARTIAL THROMBOPLASTIN TIME27.922.3 - 36.2 secTBHSpecimen (Source)Anatomical Location / LateralityCollection Method / VolumeCollection TimeReceived Time10/22/2025 8:45 AM EST10/22/2025 9:05 AM EST Narrative [facility] - 10/22/2025 10:28 AM EST Authorizing ProviderResult TypeResult StatusGeneric External Data Provider CLINISYNCFinal ResultPerforming OrganizationAddressCity/State/ZIP CodePhone Number [facility] [employer] * SRMCOH PROTHROMBIN TIME INR W/O COUM (10/22/2025 8:45 AM EST)ComponentValueRef RangeTest MethodAnalysis TimePerformed AtPathologist SignaturePROTHROMBIN TIME 10.99.0 - 11.6 secTBHTBH INR1.04TBHComment: DESIRED INR: 2.0-3.0 CONDITIONS NOT LISTED BELOW 2.5-3.5 FOR PROSTHETIC HEART VALVE REPLACEMENT 2.5-3.5 RECURRENT THROMBOSIS Specimen (Source)Anatomical Location / LateralityCollection Method / Volume Collection TimeReceived Time10/22/2025 8:45 AM EST10/22/2025 9:05 AM EST Narrative [facility] - 10/22/2025 10:28 AM EST Authorizing ProviderResult TypeResult StatusGeneric External Data Provider CLINISYNCFinal ResultPerforming OrganizationAddressCity/State/ZIP CodePhone Number [facility] [employer] * (ABNORMAL) ALL BASIC METABOLIC PANEL (10/22/2025 8:45 AM EST)ComponentValueRef RangeTest MethodAnalysis TimePerformed AtPathologist LnherjcggZWFAQQ983726 - 145 mmol/LTBHPOTASSIUM4.13.5 - 5.1 mmol/VXLTXMDVYMDQ20525 - 107 mmol/LTBH [place] XNSJZDQ73.721.0 - 32.0 mmol/LTBHANION GAP11.8SZXSGEMDNA530(H)74 - 106 mg/dLTBHBLOOD UREA PMSTRVFW22.07.0 - 18.0 mg/dLTBHCREATININE0.910.70 - 1.30 mg/dLTBHTBH EGFR-AF [place]>60>=60 mL/min/1.73m 2TBHTBH EGFR-NON AF [place] >60>=60 mL/min/1.73m 2TBHBUN CREATININE RATIO16.1IXLEKENMCA3.28.5 - 10.1 mg/dL TBHSpecimen (Source)Anatomical Location / LateralityCollection Method / Volume Collection TimeReceived Time10/22/2025 8:45 AM EST10/22/2025 9:05 AM EST Narrative [facility] - 10/22/2025 9:54 AM EST Authorizing ProviderResult TypeResult StatusGeneric External Data Provider CLINISYNCFinal ResultPerforming OrganizationAddressCity/State/ZIP CodePhone Number [facility] [employer] * (ABNORMAL) ALL CBC WITH AUTO DIFF (10/22/2025 8:45 AM EST)ComponentValueRef RangeTest MethodAnalysis TimePerformed AtPathologist SignatureTBH WBC8.04.0 - 11.0 10 3/uLTBHTBH RBC4.59(L)4.70 - 6.10 10 6/uLTBHTBH HGB15.214.0 - 18.0 g/dL TBHTBH HCT44.142.0 - 54.0 %TBHTBH MCV96.1(H)80.0 - 94.0 fLTBHTBH MCH33.125.9 - 34.0 pgTBHTBH MCHC34.529.9 - 35.2 g/dLTBHTBH RDW11.911.0 - 15.0 %TBHTBH RBS066 150 - 450 10 3/uLTBHTBH MPV9.99.5 - 13.5 fLTBHNEUTROPHILS PERCENT AUTO64.543.0 - 75.0 %TBHLYMPHOCYTES PERCENT AUTO25.020.5 - 60.0 %TBHMONOCYTES PERCENT AUTO 8.51.7 - 12.0 %TBHTBH EO %1.50.9 - 7.0 %TBHBASOPHILS PERCENT AUTO0.40.2 - 2.0 %TBHIMMATURE GRANULOCYTES PCT AUTO0.10.0 - 0.5 %TBHNEUTROPHILS ABSOLUTE AUTO 5.21.4 - 6.5 10 3/uLTBHLYMPHOCYTES ABSOLUTE AUTO2.01.2 - 3.8 10 3/uLTBH MONOCYTES ABSOLUTE AUTO0.70.3 - 0.8 10 3/uLTBHTBH EO #0.10.0 - 0.7 10 3/uLTBH BASOPHILS ABSOLUTE AUTO0.00.0 - 0.1 10 3/uLTBHIMMATURE GRANULOCYTES ABS AUTO 0.010.00 - 0.03 10 3/uLTBHSpecimen (Source)Anatomical Location / Laterality Collection Method / VolumeCollection TimeReceived Time10/22/2025 8:45 AM EST 10/22/2025 9:05 AM EST Narrative [facility] - 10/22/2025 9:16 AM EST Authorizing ProviderResult TypeResult StatusGeneric External Data Provider CLINISYNCFinal ResultPerforming OrganizationAddressCity/State/ZIP CodePhone Number [facility] [employer] documented in this encounter Visit Diagnoses Not on filedocumented in this encounter Care Teams Team MemberRelationshipSpecialtyStart DateEnd Date Gilberto Dee MD [address] [address] PCP - GeneralFamily Medicine05/19/23documented as of this encounter
--- OUTSIDE RECORDS SUMMARY | 2025-10-30 06:47 | XMS_ITS | Encounter Summary ---
Author Organization [facility] Address [address] [place] [address] Care Team Providers Care Rubber Press Tender Name Role Phone Gilberto Dee MD Primary Care Provider + [phone] Encounter Details DateTypeDepartmentCare Team (Latest Contact Info)Pqdvyemshqp21/12/2025Telephone [facility] [address] [facility] [address] [place] [address] Tony Thomas, WEATHER CLERK [address] [facility] [place] [address] Social History Tobacco UseTypesPacks/DayYears UsedDateSmoking Tobacco: NeverSmokeless [...] relatives?Once a week08/01/2023How often do you attend taoist or yarsani services?Patient qdiawpbg86/24/2023o you belong to any clubs or organizations such as taoist groups, unions, fraternal or athletic sandi ups, or school groups?No08/01/2023How often do you attend meetings of the clubs or organizations you belong to?Patient bickzjjw51/24/2023re you , , , , never , [...] at all 08/01/2023HQ-2AnswerDate RecordedPatient Health Questionnaire-2 Score0 09/03/2025[facility] [place] of Occupational Health - Occupational Stress QuestionnaireAnswerDate [...] on file documented as of this encounter Miscellaneous Notes * Telephone Encounter - Yolette Ashby - 10/19/2025 10:47 AM EST I called her back to let her know, she does already have notes. She will completed everything today. * Telephone Encounter - Yolette Ashby - 10/19/2025 10:31 AM EST [facility]. She is trying to complete the FROI. The code is not matching. S46.011A, it comes up strain. Her phone number is [phone] documented in this encounter Plan of Treatment DateTypeDepartmentCare Team (Latest Contact Info)Vyhivikxsbk45/20/2026 8:00 AM EDTOffice Visit [facility] 112 [facility] 100 [place] [address] Gilberto Dee MD 112 [facility] 100 [place] [address] documented as of this encounter Visit Diagnoses Not on filedocumented in this encounter Care Teams Team MemberRelationshipSpecialtyStart DateEnd Date Gilberto Dee MD [address] [place] [address] PCP - GeneralFamily Medicine05/19/23documented as of this encounter
--- OUTSIDE RECORDS SUMMARY | 2025-10-30 06:48 | XMS_ITS | Clinical Summary ---
Author Organization [facility] Address [address] [place], [place] [address] Care Team Providers Care Archery Equipment Repairer Name Role Phone Unavailable Primary Care Provider Unavailabl e Social History Tobacco UseTypesPacks/DayYears UsedDateSmoking Tobacco: Never AssessedSex and Gender InformationValueDate RecordedSex Assigned at BirthNot on fileLegal Sex Male05/26/2019 2:45 PM EDTGender IdentityNot on fileSexual OrientationNot on file Plan of Treatment Not on file Insurance
--- OUTSIDE RECORDS SUMMARY | 2025-10-30 06:48 | XMS_ITS | Encounter Summary ---
Author Organization [facility] Address [address] [place] [address] Care Team Providers Care Instrumentation Technologist Name Role Phone Gilberto Dee MD Primary Care Provider [phone] Shady Jara MD Unavailable [phone] Sasha Longo MD Unavailable [phone] Tony Thomas ETL INFORMATICA DEVELOPER Unavailable [phone] Rigo Barkley PT Unavailable [phone] Encounter Details DateTypeDepartmentCare Team (Latest Contact Info)Zjnjmwpappd47/18/2025amboo flowsheet [facility] [address] Medicine [address] [place] [address] Gilberto Dee MD [address] [place] [address] Social History Tobacco UseTypesPacks/DayYears UsedDateSmoking Tobacco: NeverSmokeless [...] relatives?Once a week08/01/2023How often do you attend worship or gnosticist services?Patient dzaksdtb17/24/2023o you belong to any clubs or organizations such as worship groups, unions, [place] or athletic sandi ups, or school groups?No08/01/2023How often do you attend meetings of the clubs or organizations you belong to?Patient /24/2023re you , , , , never , [...] at all 08/01/2023HQ-2AnswerDate RecordedPatient Health Questionnaire-2 Score0 10/25/2025[facility] [place] of Occupational Health - Occupational Stress QuestionnaireAnswerDate [...] steady place to sleep or slept in [place] (including now)?No08/01/2023Sex and Gender InformationValueDate RecordedSex Assigned at BirthNot on fileLegal SexMale 01/20/2023 6:53 PM EDTGender IdentityNot on fileSexual OrientationNot on file documented as of this encounter Plan of Treatment DateTypeDepartmentCare Team (Latest Contact Info)Hypvgooaqlh11/20/2026 8:00 AM EDTOffice Visit [facility] [address] Family Medicine 112 [facility] 100 [place] [address] Gilberto Dee MD 112 [facility] 100 [place] [address] documented as of this encounter Visit Diagnoses Not on filedocumented in this encounter Care Teams Team MemberRelationshipSpecialtyStart DateEnd Gilberto Dee MD 112 [facility] 100 [place] [address] PCP - GeneralFamily Medicine05/19/23 Shady Jara MD [address] [place] [address] Referring OqxhwzrmqBtbfwmt07/17/25 Sasha Longo MD [address] [place] [address] Referring PhysicianPain Rqrspcfx78/17/25 Tony Thomas, ETL INFORMATICA DEVELOPER [address] [place] [address] Nurse PractitionerOrthopaedic Krvolbg18/17/25 Rigo Barkley, PT [address] [address] Physical TherapistPhysical Uvvmprm00/17/25documented as of this encounter
--- OUTSIDE RECORDS SUMMARY | 2025-10-30 06:48 | XMS_ITS | Clinical Summary ---
Author Organization [employer] Address [id number] [address] [place] [address] Care Team Providers Care Value Analyst Name Role Phone Gilberto Dee MD Primary Care Provider Allergies Active AllergyReactionsCriticalityNoted DateCommentsMetforminDiarrheaLow 04/12/2024 Patient has chron's Medications MedicationSigDispense QuantityRefillsLast FilledStart DateEnd DateStatus allopurinol (ZYLOPRIM) 100 mg tablet Take 1 tablet (100 mg total) by mouth in the morning.Active cmgsxzqf-jwog-MQ-calcium &mins (THERAGRAN-M) 9 mg iron-400 mcg tablet Take by mouth.Active TAMSULOSIN HCL (FLOMAX ORAL) Take 0.4 mg by mouth in the morning and at bedtime.Active atorvastatin (LIPITOR) 20 mg tablet Take 1 tablet (20 mg total) by mouth in the morning.Active amLODIPine (NORVASC) 10 mg tablet Take 1 tablet (10 mg total) by mouth in the morning.Active pioglitazone (ACTOS) 45 mg tablet Take 1 tablet (45 mg total) by mouth in the morning.Active ascorbic acid, vitamin C, (VITAMIN C) 1000 mg tablet Take 1 tablet (1,000 mg total) by mouth in the morning.Active glucosamine/chondr shen A sod (OSTEO BI-FLEX ORAL) Take by mouth in the morning and at bedtime.Active melatonin (CIRCADIN) tablet Take by mouth nightly.Active losartan-hydroCHLOROthiazide (HYZAAR) 100-12.5 mg per tablet Take 1 tablet by mouth in the morning.Active cholecalciferol, vitamin D3, 2,000 units capsule Take 1 capsule (2,000 Units total) by mouth in the morning.Active aspirin 81 mg Take 1 tablet (81 mg total) by mouth in the morning.4Active meloxicam (MOBIC) 15 mg tablet Take 1 tablet (15 mg total) by mouth in the morning.Active methylPREDNISolone (MEDROL, MYRON,) 4 mg tablet follow package directions 21 tablet 5Active dapagliflozin propanediol (FARXIGA) 10 mg tablet Take 1 tablet (10 mg total) by mouth in the morning.6Active gabapentin (NEURONTIN) 600 mg tablet Take 1.5 tablets (900 mg total) by mouth 3 (three) times a day.5Active potassium chloride (K-TAB,KLOR-CON) 10 MEQ CR tablet Take by mouth in the morning and before bedtime.Active zinc gluconate 50 mg tablet Take 1 tablet (50 mg total) by mouth in the morning.Active diazePAM (VALIUM) 5 mg tablet Indications:Anxiety due to invasive procedureTake 1 tablet (5 mg total) by mouth in the morning and at bedtime. 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 Cervical disc displacement (Primary Dx); Lumbar stenosis with neurogenic yzvuybmfxciq85/02/7721Dtqtkr91/18/2025 9:33 AM EST - 09/25/2025 11:59 PM ESTHospital Encounter [facility] [address] [place] [address] Sasha Longo, 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 Pain of right upper extremity Discharge Disposition: Home09/25/2025 9:33 AM ESTHospital Encounter [facility] [address] [place] [address] Sasha Longo APRN-DAWIT Disorder of sacrum Discharge Disposition: Home09/25/2025 9:30 AM EST - 09/25/2025 9:32 AM EST Hospital Encounter [facility] [address] [place] [address] Sasha Longo APRN-DAWIT Acute pain of right shoulder Discharge Disposition: Home09/25/2025 8:00 AM ESTOffice Visit [facility] [address] [place] [address] Sasha Longo APRN-CNP Acute pain of right shoulder (Primary Dx); Pain of right upper extremity; Greater trochanteric bursitis of both hips; Disorder of sacrum; Cervical disc igneqbopiogx65/18/2025Results Follow-Up [facility] [address] [place] [address] Sasha Longo APRN-CNP X-ray shoulder right minimum 2 views09/25/20259875Zbwbva90/11/2025 7:41 AM EST - 09/18/2025 11:59 PM ESTHospital Encounter [facility] MRI Imaging [address] [place] [address] Sasha Longo APRN-DAWIT Cervical spinal stenosis; Cervical radiculopathy Discharge Disposition: Home09/18/20250693Azkota57/31/2025 1:53 PM EDT - 09/07/2025 2:00 PM EDTSurgery [facility] Procedures [address] [place] [address] Arnold Castañeda MD INJECTION BLOCK NERVE MEDIAL BRANCH Left C 03/13, 04/14 [12013 (CPT??)]09/07/2025 12:43 PM EDT - 09/07/2025 11:59 PM EDTHospital Encounter [facility] [address] [place] [address] Arnold Castañeda MD Discharge Disposition: Home09/07/2025 10:30 AM EDT - 09/07/2025 12:42 PM EDT Hospital Encounter [facility] Radiology [address] [place] [address] Arnold Castañeda MD Cervical spondylosis without myelopathy Discharge Disposition: Home09/07/2025Results Follow-Up [facility] Procedures [address] [place] [address] Arnold Castañeda MD Bedside Glucose *Place/Obtain serum glucose if >500 per glucometer.08/28/2025 8:15 AM EDTOffice Visit [facility] [address] [place] [address] Sasha Longo, 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 Cervical spinal stenosis (Primary Dx); Cervical spondylosis without myelopathy; Cervical radiculopathy; Anxiety due to invasive /21/2025Telephone [facility] [address] [place] [address] Debbie Cormier RN 08/28/2025Telephone [facility] [address] [place] [address] Debbie Cormier RN 08/28/20259289Kprwcr39/03/2025 7:22 AM EDT - 08/10/2025 7:29 AM EDTSurgery [facility] [address] [place] [address] Arnold Castañeda MD INJECTION SPINE TRANSFORAMINAL LEFT C 6, 7 NROOT [21906 (CPT??)]08/10/2025 6:44 AM EDT - 08/10/2025 11:59 PM EDTHospital Encounter [facility] [address] [place] [address] Arnold Castañeda MD Cervical spinal stenosis Discharge Disposition: Home08/10/2025 6:42 AM EDT - 08/10/2025 6:43 AM EDT Hospital Encounter [facility] Procedures [address] [place] [address] Arnold Castañeda MD Discharge Disposition: Home08/10/2025Results Follow-Up [facility] [address] [place] [address] Arnold Castañeda MD Bedside Glucose *Place/Obtain serum glucose if >500 per glucometer.from Last 3 Months Family History Medical HistoryRelationNameCommentsCancerFatherskinHeart diseaseMother HyperlipidemiaMotherHypertensionMotherRelationNameStatusCommentsFatherDeceased MotherDeceased Social History Tobacco UseTypesPacks/DayYears UsedDateSmoking Tobacco: NeverSmokeless Tobacco: NeverAlcohol UseStandard Drinks/WeekCommentsNever0 (1 standard drink = 0.6 oz pure alcohol)[facility] UtilitiesAnswerDate RecordedIn the past 12 months has the [employer], gas, oil, or water Monthlys threatened to shut off services in your home?No4AUDIT-CAnswerDate RecordedQ1: How often do you have a drink containing alcohol?Never06/07/2020Average Number of DrinksNot on file06/07/2020 Frequency of Binge DrinkingNot on file06/07/2020PRAPARE - TransportationAnswer Date RecordedIn the past 12 months, has lack of transportation kept you from medical appointments or from getting medications?No04/12/2024In the past 12 months, has lack of transportation kept you from meetings, work, or from getting things needed for daily living?No04/12/2024Housing InstabilityAnswerDate RecordedAre you worried or concerned that in the next two months you may not have stable housing that you own, rent or stay in as a part of a household?No 4ChildcareAnswerDate ExjicdxdCruxcbnseOipmfnz09/12/2019EmploymentAnswer Date XgczklgoSqasilqdkhRvcixyg28/12/2019Hunger ScreeningAnswerDate Recorded Within the past 12 months we worried whether our food would run out before we got money to buy more.Never True10/09/2025Within the past 12 months the food we bought just didn't last and we didn't have money to get more.Never True 10/09/2025Purpose - LifeAnswerDate RecordedPurpose and direction in lifeUnknown 12/19/2020ex and Gender InformationValueDate RecordedSex Assigned at BirthNot on fileLegal SmgZvmb4806/13/2015 11:32 AM EDTGender IdentityNot on fileSexual OrientationNot on file Last Filed Vital Signs Vital SignReadingTime TakenCommentsBlood Vwcsnsyf015/6810/09/2025 10:20 AM EST Vijvd566610/09/2025 10:20 AM HPINbsusryxzpb30.1 ??C (97 ??F)09/07/2025 12:51 PM EDTRespiratory Ewkb7159 10:20 AM ESTOxygen Yzzzvnsezt57%09/07/2025 1:27 PM EDTInhaled Oxygen Concentration--Snqosw166.5 kg (237 lb)10/09/2025 10:20 AM SLOAveaso514.9 cm (6')10/09/2025 10:20 AM ESTBody Mass Index32.14112/10/2024 10:20 AM EST Plan of Treatment DateTypeDepartmentCare Team (Latest Contact Info)Esiicdphhsl80/29/2025 8:00 AM ESTOffice Visit [facility] [address] [place] [address] Sasha Longo APRN-SHUTTLE TRUCK DRIVER [address] [place] [address] Health MaintenanceDue DateLast DoneCommentsDepression Rmkbxojye35/19/1977Adult BMI Follow Up Plan1983COVID-19 Vaccine ( season)2025 08/14/2023, 10/25/2021, 02/14/2021, Additional history existsInfluenza Vaccine /10/2024, 08/14/2023, 08/25/2022, Additional history existsDTaP,Tdap and Td Vaccines (2 - Td or Tdap)/Adult BMI Screening Tobacco Mcwnzjctq81/12/2024Zoster (Shingles) OhuwaguKdyfduyhb73/09/2022, 09/06/2021 Medical Devices ImplantedTypeAreaManufacturerDevice IdentifierShelf Expiration DateModel / Serial / LotCement Bn Bio 40gm Rpl [id number] - Sn/A - [id number] Implanted:Qty: 1 on 04/12/2024 by Rafita Thompson [facility]: KneeZimmer [id number] / N/A / [id number] Bn Dbm 5ml Ptty Inj Stagraft Rpl [id number]+Cmt - Sna - [id number] Implanted:Qty: 1 on 01/02/2022 by S[facility]h [facility]gs DPM at [facility]Left: FootZimmer Fkulqi06-2003 / NA / [id number] Artc 8-11 Gh 10mm Kn Rt Crcte Rtn Vivacit-E Persona - Sn/A - [id number] Implanted:Qty: 1 on [facility]12/20[facility] Im[facility]Right: KneeZimmer [id number] / N/A / [id number] Ptlr 35mm Persona Alply Kn Strl Lf - Sn/A - [id number] Implanted:Qty: 1 on 04/12/2024 by Rafita Thompson DO at [facility] ImplantRight: KneeZimmer [id number] / N/A / [id number] Tib Kn Rt 0d G Persona Osseoti Keel - Sn/A - [id number] Implanted:Qty: 1 on 04/12/2024 by Rafita Thompson DO at [facility] ImplantRight: KneeZimmer [id number] / N/A / [id number] The Personalized Knee System Cruciate Retaining Right Size 10, Popous Plasma Tofte StandardFemur Implanted:Qty: 1 on 04/12/2024 by Rafita Thompson DO at [facility] ImplantRight: KneeZimmer Whyytm1601/04/2034 [id number] / N/A / [id number] Bn 14mm [address] Strdr Sld Basilio Ti Lp Scr T10 Ft Cmprh Forefoot Tiffanie Ft Lo Prof - Sna - [id number] Implanted:Qty: 1 on 01/02/2022 by [facility]: CrhuOhosnll28/01/2740QS-5708-39 / NA / NAScrew Bn 13mm 2mm St Slf Drl Snpof 3 Pr Ti Qfix Ft Grn - [id number] - [id number] Implanted:Qty: 1 on 01/02/2022 [facility]: JblkPctfgapKF-6376-08 / [id number] / NA3.0 Low Profile Cortical Screw Implanted:Qty: 1 on 01/02/2022 [facility]: FfgdDbqqbfs75/01/2555DF-4097-92 / NA / NA3.0 Low Profile Cortical Screw Implanted:Qty: 2 on 01/02/2022 by [facility] at [facility]: WlvyXgwmgfs01/01/2967LP-6816-41 / NA / NA3.0 Low Profile Cortical Screw Implanted:Qty: 2 on 01/02/2022 by [facility] at [facility]: VidvRqsusjv99/01/5686LD-2692-58 / NA / NAForefoot Internal Brace /Implant System Peek Implanted:Qty: 1 on 01/02/2022 by [facility] at [facility]: JkdoOchndzy21/30/2007UF-2703-VR / / [id number] Pip Implant, Straight 12mm Implanted:Qty: 1 on 01/02/2022 by [facility]: MbhoXpbuosr06/30/2496YZ-9692VR-61U / NA / [id number] Plate - Max Force -D5 Degree Valgus - 5 Degree Dorsiflex Implanted:Qty: 1 on 01/02/2022 by [facility]h [facility]: OhspAhrtbbm93/01/8970FL-1451C-5P / NA / NAExplantedTypeAreaManufacturerDevice [facility] [place][note 2]helf Expiration DateModel / Serial / LotTrocar .62in 5in Wr C Tip Escp Must Buy Multiple Of 5 Ea - Sna - [id number] Explanted:Qty: 2 on 01/02/2022 by [facility] ImplantLeft: FootCONMED SHXBVLLC28/17/90004035-981 / NA / [id number] Gd 48mm Qd-Spr Hex Hd Mis Strl - Sn/A - [id number] Explanted:Qty: 1 on [facility]12/2024 [facility] KneeZimmer [id number]/148689-0289-445-57 / N/A / [id number] 27mm Hx Hd Scr Srg - Sn/A - [id number] Explanted:Qty: 1 on [facility]/12/2024 [facility] KneeZimmer [id number]/165566-2345-217-70 / N/A / [id number] Gd 48mm Qd-Spr Hex Hd Mis Strl - Sn/A - [id number] Explanted:Qty: 1 on [facility]/12/2024 [facility] KneeZimmer [id number]/585014-7930-167-20 / N/A / [id number] Bn 35mm 6.5mm St Hip Actb Trlg Strl Rpl [id number]+32 - Sn/A - [id number] Explanted:Qty: 1 on [facility]12/2024 [facility] KneeZimmer [id number] / N/A / [id number] Bn 35mm 6.5mm St Hip Actb Trlg Strl Rpl [id number]+32 - Sn/A - [id number] Explanted:Qty: 1 on [facility]12/2024 [facility] KneeZimmer [id number]/12/[id number] / N/A / [id number] Wire Explanted:Qty: 1 on 01/02/2022 by [facility]: FkluDvdwywp82/01/8439DX7660R / NA / NA Procedures Procedure NamePriorityDate/TimeAssociated DiagnosisCommentsXR SHOULDER RT MIN 2 IAUFlunnik51/18/2025 10:04 AM EST Acute pain of right shoulder XR HUMERUS RT MIN 2 NAYMznmhhq16/ 10:03 AM EST Pain of right upper extremity XR HIPS BILAT W OR WO PELVIS 5+ JAHSbrdagx17/18/2025 10:02 AM EST Disorder of sacrum JOINT ASPIRATION/HMBWEFJANRmxlphb34/18/2025 9:09 AM EST Greater trochanteric bursitis of both hips MR CERVICAL SPINE WO NBIHPlcmyxd42/11/2025 8:27 AM EST Cervical spinal stenosis Cervical radiculopathy FL FLUOROSCOPY UP TO 1 SSLOOjwsoyk97/31/2025 1:25 PM EDT Cervical spondylosis without myelopathy WA INJ DX/THER AGNT PARAVERT FACET JOINT,IMG GUIDE,CERV/THORAC, 1ST LEVEL 09/07/2025 1:20 PM EDT Cervical spondylosis without myelopathy Special Needs Diabetic, Farxiga (local) BEDSIDE HMUJOERXxakuyo59/31/2025 12:49 PM EDT FL FLUOROSCOPY UP TO 1 TRPYBrhrkvn22/03/2025 7:25 AM EDT Cervical spinal stenosis WA INJECT ANES/STEROID FORAMEN CERV/THORACIC W IMG GUIDE ,1 LEVEL08/10/2025 7:20 AM EDT Cervical spinal stenosis Special Needs Diabetic, Farxiga (Local) BEDSIDE HUVZSHISrkxmmo40/03/2025 6:56 AM EDT from Last 3 Months Results * X-ray shoulder right minimum 2 views (09/25/2025 10:04 AM EST)Anatomical RegionLateralityModalityMSK, Upper Extremities, ShoulderRightComputed RadiographySpecimen (Source)Anatomical Location / LateralityCollection Method / VolumeCollection TimeReceived Time09/25/2025 11:09 AM EST Narrative 09/25/2025 11:21 AM EST Clinical history: Shoulder injury. Right shoulder: 09/25/2025 COMPARISON: None FINDINGS: 3 views the shoulder were obtained. Glenohumeral alignment is anatomic. There is some marginal new bone formation and subarticular sclerosis. No focal articular surface abnormality is evident. Calcification is present adjacent to the acromion process. Cystic changes present in the greater tuberosity with some cortical irregularity. Moderate acromioclavicular degenerative changes are present. IMPRESSION: Cortical irregularity greater tuberosity likely the sequela of rotator cuff insertional disease. A small fracture is not excluded in this area and MRI may be helpful for further assessment if clinically indicated. Glenohumeral and acromioclavicular degenerative changes. Soft tissue ossification adjacent to the acromion likely sequela of remote injury. Finalized by Trent Sorto MD on 09/25/2025 11:21 AM Procedure Note Trent Sorto MD - 09/25/2025 Clinical history: Shoulder injury. Right shoulder: 09/25/2025 COMPARISON: None FINDINGS: 3 views the shoulder were obtained. Glenohumeral alignment is anatomic.There is some marginal new bone formation and subarticular sclerosis. Nofocal articular surface abnormality is evident. Calcification is presentadjacent to the acromion process. Cystic changes present in the greatertuberosity with some cortical irregularity. Moderate acromioclavicular degenerativechanges are present. IMPRESSION: Cortical irregularity greater tuberosity likely the sequela of rotatorcuff insertional disease. A small fracture is not excluded in this areaand MRI may be helpful for further assessment if clinically indicated. Glenohumeral and acromioclavicular degenerative changes. Soft tissue ossification adjacent to the acromion likely sequela of remote injury. Finalized by Trent Sorto MD on 09/25/2025 11:21 AM Authorizing ProviderResult TypeResult StatusSamanhunter Longo REAL ESTATE LEASING MANAGER-CNPIMG DIAGNOSTIC IMAGING ORDERABLESFinal Result * X-ray humerus right minimum 2 views (09/25/2025 10:03 AM EST)Anatomical Region LateralityModalityUpper Extremities, MSK, HumerusRightComputed Radiography Specimen (Source)Anatomical Location / LateralityCollection Method / Volume Collection TimeReceived Time09/25/2025 1:04 PM EST Narrative 09/25/2025 1:04 PM EST XR HUMERUS RT MIN 2 VWS Pain of right upper extremity Findings: There is grossly no fracture or destructive lesion. Impression: * ??No acute findings. * ??Consider MRI if you suspect occult process. Finalized by Pedro Bauer MD on 09/25/2025 1:04 PM Procedure Note Pedro Bauer MD - 09/25/2025 XR HUMERUS RT MIN 2 VWS Pain of right upper extremity Findings: There is grossly no fracture or destructive lesion. Impression: * No acute findings. * Consider MRI if you suspect occult process. Finalized by Pedro Bauer MD on 09/25/2025 1:04 PM Authorizing ProviderResult TypeResult StatusSabath va medical centerreyes Longo REAL ESTATE LEASING MANAGER-[facility]EL[facility] CENTERG DIAGNOSTIC IMAGING ORDERABLESFinal Result * X-ray hips bilateral with or without pelvis 5+ views (09/25/2025 10:02 AM EST) Anatomical RegionLateralityModalityLower Extremities, MSK, HipBilateral Computed RadiographySpecimen (Source)Anatomical Location / Laterality Collection Method / VolumeCollection TimeReceived Time09/25/2025 1:03 PM EST Narrative 09/25/2025 1:03 PM EST XR HIPS BILAT W OR WO PELVIS 5+ VWS Clinical history:Disorder of sacrum ??pelvic pain Comparison: None. Impression: Severe degenerative changes of the lumbar spine and bilateral sacral joints. Severe degenerative changes of the bilateral hips with joint space loss and narrowing osteophyte formation. No acute process fracture dislocation. Irregularity of the inferior pubis ramus likely represents prior trauma or injury. Finalized by Bill Bardales MD on 09/25/2025 1:03 PM Procedure Note Bill Bardales MD - 09/25/2025 XR HIPS BILAT W OR WO PELVIS 5+ VWS Clinical history:Disorder of sacrum pelvic pain Comparison: None. Impression: Severe degenerative changes of the lumbar spine and bilateral sacraljoints. Severe degenerative changes of the bilateral hips with joint spaceloss and narrowing osteophyte formation. No acute process fracturedislocation. Irregularity of the inferior pubis ramus likely representsprior trauma or injury. Finalized by Bill Bardales MD on 09/25/2025 1:03 PM Authorizing ProviderResult TypeResult StatusSaeros GRAVESIMG DIAGNOSTIC IMAGING ORDERABLESFinal Result * $ Arthrocentesis (09/25/2025 9:09 AM EST) Narrative MANUALLY TRANSCRIBED RESULTS - 09/25/2025 9:09 AM EST STAR Mobley 09/25/2025 10:43 AM $ Arthrocentesis Date/Time: 09/25/2025 9:09 AM Performed by: STAR Mobley Authorized by: STAR Mobley ?? Verbal consent obtained?: Yes ?? Written consent obtained?: Yes ?? Risks and benefits: Risks, benefits and alternatives were discussed ?? Consent given by: ??Patient Patient states understanding of procedures being performed: Yes ?? Patient's understanding of procedure matches consent: Yes ?? Procedure consent matches procedure scheduled: Yes ?? Relevant documents present and verified: Yes ?? Test results available and properly labeled: Yes ?? Site marked: Yes ?? Imaging studies available: Yes ?? Patient identity confirmed: ??Verbally with patient Indications: ??Osteoarthritis and pain Location: Bilaeral Trochanteric bursa. Needle gauge: 27G. Ultrasound guidance: No ?? Approach: ??Lateral Bupivacaine strength (%): ??0.25 Bupivacaine amount (ml): ??8 Kenalog amount (mg/ml): ??80 Patient tolerance: ??Patient tolerated the procedure well with no immediate complications Procedure was completed Vital signs stable during the procedure Complications: none Interventions: none Follow up 2 weeks The medications I have prescribed have been reviewed for medication interactions/contraindications and/or for upcoming procedures: continue current medication regimen without any changes. DISCUSSION: Treatment options discussed with patient and all questions answered to patient's satisfaction. Discussed the rules and regulations surrounding prescription of opioids and compliance at length. Failure to follow the rules and regulation will result in tapering and discontinuation of medications if applicable. Prescribed medication that requires intensive monitoring for toxicity We do not currently prescribe any controlled substance from this practice. The spine model was demonstrated and MRI was reviewed and used to explain the condition. Chronic conditions not treated during this visit that affected my overall medical decision making: Obesity, Diabetes OARRS: Reviewed. Scribe Statement: I, Reena Esqueda CNA, scribed for and in the presence of STAR MOBLEY who performed the above service. Reena Esqueda CNA 09/25/25 0932 Authorizing ProviderResult TypeResult StatusSamanhunter GRAVES PROCEDURE/MINOR SURGICAL ORDERABLESFinal ResultPerforming OrganizationAddress City/State/ZIP CodePhone Number MANUALLY TRANSCRIBED RESULTS * MR cervical spine without contrast (09/18/2025 8:27 AM EST)Anatomical Region LateralityModalityMSK, Neuro, Spine, C-spine, Spine CoveraN/AMagnetic ResonanceSpecimen (Source)Anatomical Location / LateralityCollection Method / VolumeCollection TimeReceived Time09/18/2025 12:15 PM EST Narrative 09/18/2025 12:19 PM EST EXAM: MRI CERVICAL SPINE WITHOUT CONTRAST CLINICAL HISTORY: Chronic neck pain. TECHNIQUE: Routine unenhanced MRI of the cervical spine was obtained. COMPARISONS: CT dated 12/29/2024 FINDINGS: The cervical spine maintains a normal lordotic curvature. There is chronic minimal grade 1 degenerative anterolisthesis of C4 on C5. There is no significant loss of the vertebral body heights. There is localized moderate loss of the C6-7 disc space height with degenerative endplate irregularity and very minimal nonaggressive degenerative endplate marrow edema. There are no discrete worrisome bonemarrow signal abnormalities. The craniocervical junction is within normal limits. There are no signal abnormalities of the visualized cervical spinal cord. Individual disc space levels: C2-C3: The disc is unremarkable. C3-C4: The disc is unremarkable. C4-C5: There is facet osteoarthropathy with minimal grade 1 degenerative anterolisthesis. There is a slight disc bulge. There is focal moderately severe left neural foraminal stenosis for the exitingC5 nerve root. C5-C6: There is facet osteoarthropathy and slight bulging of the disc flattening the thecal sac. There is focal moderately severe right neural foraminal stenosis for the exiting C6 nerve root. C6-C7: There is a chronic disc bulge flattening thecal sac. There is focal moderately severe right neural foraminal stenosis. C7-T1: The disc is unremarkable. There is facet osteoarthropathy. IMPRESSION: 1. Chronic degenerative disc disease and facet osteoarthropathy, as detailed above. 2. At C4-C5, there is moderately severe left neural foraminal stenosis for the exiting C5 nerve root. 3. At C5-C6, there is moderately severe right neural foraminal stenosis for the exiting C6 nerve root. 4. At C6-C7, there is moderately severe right neural foraminal stenosis for the exiting C7 nerve root. Finalized by Geoffrey Taylor MD on 09/18/2025 12:19 PM Procedure Note Geoffrey Taylor MD - 09/18/2025 EXAM: MRI CERVICAL SPINE WITHOUT CONTRAST CLINICAL HISTORY: Chronic neck pain. TECHNIQUE: Routine unenhanced MRI of the cervical spine was obtained. COMPARISONS: CT dated 12/29/2024 FINDINGS: The cervical spine maintains a normal lordotic curvature. There is chronic minimal grade 1 degenerative anterolisthesis of C4 on C5. There is nosignificant loss of the vertebral body heights. There is localizedmoderate loss of the C6-7 disc space height with degenerative endplateirregularity and very minimal nonaggressive degenerative endplate marrow edema. There areno discrete worrisome bone marrow signal abnormalities. The craniocervicaljunction is within normal limits. There are no signal abnormalities of thevisualized cervical spinal cord. Individual disc space levels: C2-C3: The disc is unremarkable. C3-C4: The disc is unremarkable. C4-C5: There is facet osteoarthropathy with minimal grade 1 degenerative anterolisthesis. There is a slight disc bulge. There is focal moderatelysevere left neural foraminal stenosis for the exiting C5 nerve root. C5-C6: There is facet osteoarthropathy and slight bulging of the discflattening the thecal sac. There is focal moderately severe right neuralforaminal stenosis for the exiting C6 nerve root. C6-C7: There is a chronic disc bulge flattening thecal sac. There is focal moderately severe right neural foraminal stenosis. C7-T1: The disc is unremarkable. There is facet osteoarthropathy. IMPRESSION: 1. Chronic degenerative disc disease and facet osteoarthropathy, asdetailed above. 2. At C4-C5, there is moderately severe left neural foraminal stenosis forthe exiting C5 nerve root. 3. At C5-C6, there is moderately severe right neural foraminal stenosisfor the exiting C6 nerve root. 4. At C6-C7, there is moderately severe right neural foraminal stenosisfor the exiting C7 nerve root. Finalized by Geoffrey Taylor MD on 09/18/2025 12:19 PM Authorizing ProviderResult TypeResult Asia Longo REAL ESTATE LEASING MANAGER-CNPIMG MRI ORDERABLESFinal Result * Fluoroscopy less than one hour (09/07/2025 1:25 PM EDT) Only the most recent of2 resultswithin the time period is included. Specimen (Source)Anatomical Location / LateralityCollection Method / Volume Collection TimeReceived Time Narrative SYSTEMGENERATED, DOCUMENTATION - 09/07/2025 1:25 PM EDT No Reading Required. This procedure does not require a formal dictation. Non-Radiologist provider performed procedures can be reviewed under Post-Op, Procedure or Progress notes. For full report details, please reach out to your physician. ??Effective 03/25/2021 this image will be visible to you in MyChart. Authorizing ProviderResult GamalielReschandana Castañeda MDIMG FLUOROSCOPY ORDERABLESFinal Result * (ABNORMAL) Bedside Glucose *Place/Obtain serum glucose if >500 per glucometer. (09/07/2025 12:49PM EDT) Only the most recent of2 resultswithin the time period is included. ComponentValueRef RangeTest MethodAnalysis TimePerformed AtPathologist Signature Bedside Glucose (POC)113(H)65 - 99 mg/dL09/07/2025 12:54 PM EDTPROMEDICA CORONA REGIONAL MEDICAL CENTERpecimen (Source)Anatomical Location / LateralityCollection Method / VolumeCollection TimeReceived Timearterial/jecgycjib22/31/2025 12:49 PM EDT1 12:53 PM EDT Narrative Authorizing Blaine Castañeda MDPOINT OF CARE TEST ORDERABLESFinal ResultPerforming OrganizationAddressCity/State/ZIP CodePhone Number [facility] [address] [place] [address], from Last 3 Months Insurance Advance Directives * Full Code (Latest Code Status on File) Date ActivatedDate InactivatedComments04/12/2024 7:44 AM04/13/2024 2:11 PM * Full Code Date ActivatedDate InactivatedComments04/05/2024 8:05 AM04/05/2024 12:28 PM Care Teams Team MemberRelationshipSpecialtyStart DateEnd Date Gilberto Dee MD PCP - Icrrlbt64/31/23
--- OUTSIDE RECORDS SUMMARY | 2025-10-30 06:48 | XMS_ITS | Encounter Summary ---
Author Organization [facility] Address [address] [place] [address] Care Team Providers Care Tool Supervisor Name Role Phone Gilberto Dee MD Primary Care Provider + [phone] Shady Jara MD Unavailable [phone] Sasha Longo MD Unavailable [phone] Tony Thomas USER EXPERIENCE DESIGNER Unavailable [phone] Rigo Barkley PT Unavailable [phone] Encounter Details DateTypeDepartmentCare Team (Latest Contact Info)Uscxthhiqlo83/18/2025Travel Social History Tobacco UseTypesPacks/DayYears UsedDateSmoking Tobacco: NeverSmokeless [...] relatives?Once a week08/01/2023How often do you attend protestant or confucianist services?Patient olbtiuvt87/24/2023o you belong to any clubs or organizations such as protestant groups, unions, fraternal or athletic sandi ups, or school groups?No08/01/2023How often do you attend meetings of the clubs or organizations you belong to?Patient sokipthu62/24/2023re you , , , , never , [...] at all 08/01/2023HQ-2AnswerDate RecordedPatient Health Questionnaire-2 Score0 10/25/2025[facility] [place] [facility] - Occupational Stress QuestionnaireAnswerDate [...] Plan of Treatment DateTypeDepartmentCare Team (Latest Contact Info)Ivxjxmmwlya67/20/2026 8:00 AM EDTOffice Visit [facility] [place] [address] [facility] [address] [facility] [address] [place] [address] Gilberto Dee MD [address] [facility] [address] [place] [address] (Fax) documented as of this encounter Visit Diagnoses Not on filedocumented in this encounter Care Teams Team MemberRelationshipSpecialtyStart DateEnd Date Gilberto Dee MD [address] [place] [facility] [address] [place] [address] (Fax) PCP - GeneralFamily Medicine05/19/23 Shady Jara MD [address] [place] [address] Referring GkyfchzpcSyrcoio97/17/25 Sasha Longo MD [address] [place] [address] Referring PhysicianPain Cmmydugf82/17/25 Tony Thomas, USER EXPERIENCE DESIGNER [address] [place], [place] [id number] Nurse PractitionerOrthopaedic Uqbkqji50/17/25 Rigo Barkley, PT [address] [address] Physical TherapistPhysical Nzxktjb14/17/25documented as of this encounter
--- OUTSIDE RECORDS SUMMARY | 2025-10-30 06:48 | XMS_ITS | Encounter Summary ---
Author Organization [facility] Address [address] [place] [address] Care Team Providers Care Integrated Campaign Manager Name Role Phone Gilberto Dee MD Primary Care Provider + [phone] Encounter Details DateTypeDepartmentCare Team (Latest Contact Info)Tkkhhzdmvfj55/09/2025Travel Social History Tobacco UseTypesPacks/DayYears UsedDateSmoking Tobacco: NeverSmokeless [...] relatives?Once a week08/01/2023How often do you attend yarsani or confucianist services?Patient /24/2023Do you belong to any clubs or organizations such as yarsani groups, unions, fraternal or athletic sandi ups, or school groups?No08/01/2023How often do you attend meetings of the clubs or organizations you belong to?Patient zeeemvfd13/24/2023re you , , , , never , [...] at all 08/01/2023HQ-2AnswerDate RecordedPatient Health Questionnaire-2 Score0 09/03/2025[facility] [place] of Occupational Health - Occupational Stress QuestionnaireAnswerDate [...] Plan of Treatment DateTypeDepartmentCare Team (Latest Contact Info)Fmdqcoybepc12/20/2026 8:00 AM EDTOffice Visit [facility] [place] [facility] [address] [facility] [address] [place] [address] Gilberto Dee MD [address] [facility] [address] [place] [address] documented as of this encounter Visit Diagnoses Not on filedocumented in this encounter Care Teams Team MemberRelationshipSpecialtyStart DateEnd Date Gilberto Dee MD [address] [place] [facility] 100 [place] [address] PCP - GeneralFamily Medicine05/19/23documented as of this encounter
--- OUTSIDE RECORDS SUMMARY | 2025-10-30 06:48 | XMS_ITS | Clinical Summary ---
Author Organization [facility] Address [address] [place] [address] Care Team Providers Care Auto Tester Name Role Phone Gilberto Dee MD Primary Care Provider [phone] Shady Jara MD Unavailable [phone] Sasha Longo MD Unavailable [phone] Tony Thomas GOLD RECLAIMER Unavailable [phone] Rigo Barkley PT Unavailable [phone] Allergies Active AllergyReactionsCriticalityNoted DateCommentsMetforminDiarrheaLow 05/20/2023 Medications MedicationSigDispense QuantityRefillsLast FilledStart DateEnd DateStatus zinc gluconate 50 MG tablet 1 tablet Orally every other dayActive tamsulosin (Flomax) 0.4 MG 24 hr capsule 1 capsule in the morning and 1 capsule before bedtime.Active Misc Natural Products (Osteo Bi-Flex Triple Strength) tablet as directed OrallyActive cholecalciferol (Vitamin D-3) 250 MCG (32135 UT) capsule 1 (one) time each day at the same time.Active aspirin EC 81 MG EC tablet Take 81 mg by mouth Daily On hold as of /ctive mupirocin (Bactroban) 2 % ointment 08/04/2023ctive acetaminophen (Tylenol) 500 MG tablet Take 500 mg by mouth every 6 (six) hours if vlbfoc2010/30/2023ctive meloxicam (Mobic) 15 MG tablet Take 15 mg by mouth Daily5Active potassium chloride CR (Klor-Con M10) 10 MEQ ER tablet Take 10 mEq by mouth in the morning and 10 mEq in the evening.Active diazePAM (Valium) 5 MG tablet Take 5 mg by mouth in the morning and 5 mg in the evening.5Active dapagliflozin (Farxiga) 10 MG Indications:Type 2 diabetes mellitus with other diabetic kidney complication (HCC)Take 1 tablet (10 mg) by mouth Daily 90 tablet ctive atorvastatin (Lipitor) 20 MG tablet Indications:Mixed dyslipidemiaTake 1 tablet (20 mg) by mouth at bedtime 30 tablet ctive losartan-hydroCHLOROthiazide (Hyzaar) 100-12.5 MG tablet Indications:Benign essential hypertensionTake 1 tablet daily 30 tablet tive amLODIPine (Norvasc) 10 MG tablet Indications:Benign essential hypertensionTake 1 tablet (10 mg) by mouth Daily 90 tablet ctive allopurinol (Zyloprim) 100 MG tablet Indications:HyperuricemiaTake 1 tablet (100 mg) by mouth 1 (one) time each day at the same time 30 tablet ctive gabapentin (Neurontin) 600 MG tablet Indications:Chronic pain syndromeTake 1 tablet (600 mg) by mouth in the morning and 1 tablet (600 mg) in the evening and 1 tablet (600 mg) before bedtime. 270 tablet ctive LORazepam (Ativan) 1 MG tablet Indications:ClaustrophobiaTake 1 tablet (1 mg) by mouth See administration instructions 1 by mouth 1 hour prior to MRI 1 tablet 5Active Active Problems ProblemNoted DateDiagnosed DateCervical spondylosis without qpvikibaju66/20/2025 Cervical mehodgggq40/20/2025ervical stenosis of spinal canal01/23/2025 Overview (01/23/2025): CT defined 01/2025; Degenerative changes most significant at C5-C6 and C6-C7 where there is probable spinal canal stenosis. Neural foraminal stenosis of cervical spine01/23/2025 Overview (01/23/2025): CT 01/2025; Bilateral bony neuroforaminal stenosis as described at the left C4- C5 and bilateral C5-C6 and C6-C7 neuroforamen. Spondylolisthesis of cervical hruxel6401/23/2025 Overview (01/23/2025): C4-5 Right knee pain04/18/2024Status post right knee udsguilfgqz31/11/2024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)4Primary osteoarthritis of right knee4Acquired hallux xtfajx5305/20/2023cquired hammer toe of left foot05/20/2023rthritis of right acromioclavicular joint 05/20/2023rthritis of right hip05/20/2023enign essential hypertension 05/20/2023enign prostatic hyperplasia with lower urinary tract symptoms 05/20/2023alculus of psiqir7705/20/2023rohn dkaymry0805/20/2023ifficulty walking 05/20/2023ilbert mblcjrym55/13/2023Hypertensive wujznrlnkyd06/13/2023 Nfqraelmgarfx43/13/2023Internal derangement of right bhfabdns14/13/2023 Metatarsus adductus of left foot05/20/20231951Uqxlyihktzefzclm34/13/2023Mixed nkedlvoiywrg55/13/2023Morbid obesity due to excess fgzlbiyp35/13/2023Neurologic disorder associated with diabetes uryltlnw04/13/2023hronic pain syndrome 05/20/2023Other obstructive and reflux lwmtiocl17/13/2023aresthesias in right hand05/20/2023rimary osteoarthritis of both knees05/20/2023rimary osteoarthritis, right hand05/20/2023Recurrent infection of skin05/20/2023Tear of right rotator cuff05/20/2023Type 2 diabetes mellitus with other diabetic kidney /13/2023Umbilical hernia with obstruction, without gangrene 05/20/2023Vitamin D nzwrkpzmvy37/13/2023Ventral hernia with obstruction 05/20/2023 Resolved Problems ProblemNoted DateDiagnosed DateResolved DateIncomplete right bundle branch block (RBBB)/Stage 2 chronic kidney /07/2024 Encounters DateTypeDepartmentCare HevsBmflfihhxdy50/18/2025 3:00 PM ESTOffice Visit [facility] [place] [address] Gilberto Dee MD Multiple kidney stones (Primary Dx); 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); Benign essential hypertension; Type 2 diabetes mellitus with other diabetic kidney complication (HCC); Preoperative evaluation to rule out surgical tkegnsxrrvxcayhy83/18/2025amboo flowsheet [facility] [address] [place] [address] Gilberto Dee MD 10/25/20251626Aeyzdw14/15/2025linisync Result Encounter [facility] External Department Unsolicited Provider, Generic External Data 10/22/2025linisync Result Encounter [facility] External Department Unsolicited Provider, Generic External Data 10/19/2025[facility] [address] [facility] [address] [place] [address] Tony Thomas, GOLD RECLAIMER 10/16/2025 9:30 AM ESTOffice Visit [facility] [address] [place] [address] Jr. Napoleon De La Rosa DO Traumatic complete tear of right rotator cuff, initial encounter (Primary Dx); Internal derangement of right dzoddrhc90/09/7011Nlgqpa98/08/2025 10:45 AM EST Office Visit [facility] [address] [place] [address] Tony Thomas, GOLD RECLAIMER Traumatic complete tear of right rotator cuff, initial encounter (Primary Dx) 10/15/2025amboo flowsheet [facility] [address] [place] [address] Tony Thomas, GOLD RECLAIMER 10/15/20259128Oalkny50/02/2025 1:30 PM ESTAncillary Procedure [facility] [address] [place] [id number] Internal derangement of right epkbbwgz16/02/6092Tfdrng19/24/2025Telephone [facility] [address] [facility] [address] [place] [address] Tony Thomas NP MRI MED09/27/2025 9:15 AM ESTOffice Visit [facility] [address] [place] [place] [address] Tony Thomas, DINA Acute pain of right shoulder (Primary Dx); Internal derangement of right esmmibul63/20/2025amboo flowsheet [facility] [address] [place] [address] Tony Thomas NP 09/27/20253727Qggxpb41/11/2025Telephone [facility] [address] [facility] 100 [place] [address] Gilberto Dee MD Med Jifcig0009/03/2025 8:00 AM EDTOffice Visit [facility] 112 [facility] [address] [place] [address] Gilberto Dee MD Type 2 diabetes mellitus with other diabetic kidney complication (HCC); Mixed dyslipidemia; Benign essential hypertension; Hyperuricemia; Chronic pain eijhnnun97/27/2025amboo flowsheet [facility] 112 [facility] [address] [place] [address] Gilberto Dee MD 09/03/20259745Qlhhxh22/13/2025Orders Only [facility] 112 [facility] [address] [place] [address] MA Chronic pain zsoomtnp77/10/2025Refill [facility] [address] [facility] [address] [place] [address] Gilberto Dee MD Chronic pain eyivdote29/03/2025 8:30 AM EDTAncillary Procedure [facility] [address] [place] [phone] Calculus of kidney; Personal history of urinary eunhzkl3908/10/2025Travelfrom Last 3 Months Immunizations ImmunizationAdministration DatesNext DueInfluenza, Recombinant, injectable, preservative free08/19/2024Influenza, injectable, quadrivalent, preservative free09/18/2020,08/15/2018,09/19/2017,2016Influenza, recombinant, quadrivalent, injectable, preservative free08/14/2023,08/25/2022,09/06/2021 Pneumococcal Polysaccharide PIGO066911/19/20163034Katm91/23/2016Zoster, Recombinant 02/14/2022,09/06/2021 Family History Medical HistoryRelationNameCommentsNo Known ProblemsBrotherNo Known Problems DaughterCancerFatherRalph Gio srHeart diseaseMotherMary Frederick HypertensionMotherMary Hanane Known ProblemsSisterNo Known ProblemsSon RelationNameStatusCommentsBrother2 brothersDaughterAlive1 daughterFatherRalph Gio srDeceasedMotherMary DipeshdonDeceasedSister1 sisterSonAlive2 sons Social History Tobacco UseTypesPacks/DayYears UsedDateSmoking Tobacco: NeverSmokeless Tobacco: Never Tobacco Cessation:Counseling Given: Yes Alcohol UseStandard Drinks/WeekCommentsNot Currently0 (1 standard drink = [...] relatives?Once a week08/01/2023How often do you attend bahai or christian services?Patient jnqrylgn18/24/2023o you belong to any clubs or organizations such as bahai groups, unions, [employer] or athletic sandi ups, or school groups?No08/01/2023How often do you attend meetings of the clubs or organizations you belong to?Patient cbeojhgt33/24/2023re you , , , , never , [...] Health Questionnaire-2 Score0 10/25/2025[facility] [place] [facility] Occupational Health - Occupational Stress QuestionnaireAnswerDate [...] Last Filed Vital Signs Vital SignReadingTime TakenCommentsBlood Pqbbxshn905/7010/25/2025 2:56 PM EST Ydxzt387410/25/2025 2:56 PM ESTTemperature--Respiratory Rate--Oxygen Jehcutzqes54% 10/25/2025 2:56 PM ESTInhaled Oxygen Concentration--Ocrzao720 kg (264 lb) 10/25/2025 2:56 PM AYOCxzdwh284.9 cm (6')10/25/2025 2:56 PM ESTBody Mass Index 35.8112/26/2024 2:56 PM EST Plan of Treatment DateTypeDepartmentCare Team (Latest Contact Info)Fnmpcvprwzj85/20/2026 8:00 AM EDTOffice Visit [facility] [address] [facility] 100 [place] [address] Gilberto Dee MD 112 [facility] 100 [place] [address] (Fax) Health MaintenanceDue DateLast DoneCommentsCT Apwzffmdoynb1965FIT-DNA 1965FIT1965FOBT1965 6709Kzkqoxyumrzey1965Pneumococcal Vaccine: Pediatrics (0 to 5 Years) and At-Risk Patients (6 to 64 Years) (2 of 2 - PCV)Colonoscopy5011/26/2014Colorectal Cancer Xlezpvpsp97/19/2025Diabetes: Hemoglobin A1C/01/2025, 02/26/2025, 11/29/2024, Additional history existsInfluenza Vaccine (#1)/10/2024, 08/14/2023, 08/25/2022, Additional history existsPostponed from 07/09/2025 (Patient Refused)Diabetes: Urine Protein Ysyvjiede52/01/2025, 01/31/2024, 06/29/2022, Additional history existsDiabetes: Retinopathy Screening /06/2025, 07/24/2023, 07/26/2021, Additional history exists Procedures Procedure NamePriorityDate/TimeAssociated DiagnosisCommentsCCF APTTRoutine 10/22/2025 8:45 AM EST SRMCOH PROTHROMBIN TIME INR W/O ELEECoyozcy66/15/2025 8:45 AM EST ALL BASIC METABOLIC LJOQVDgpprwy61/15/2025 8:45 AM EST ALL CBC WITH AUTO LUPMZbehyuu69/15/2025 8:45 AM EST ECG 12-LEAD10/22/2025 7:51 AM EST MR SHOULDER RIGHT WO IV ILHJYRIQIpoevio07/02/2025 2:20 PM EST Internal derangement of right shoulder TN ARTHROCENTESIS ASPIR&/INJ MAJOR JT/BURSA W/O VRLraxjkq52/20/2025 12:23 PM EST Acute pain of right shoulder XR ABDOMEN 1 XXMHKymeerw76/03/2025 9:25 AM EDT Calculus of kidney Personal history of urinary calculi MICROALBUMIN / CREATININE URINE MPCJJGzyhlgq44/03/2025 9:18 AM EDT Benign essential hypertension Hypertensive nephropathy Microalbuminuria HEMOGLOBIN G2MSdekftg15/03/2025 8:52 AM EDT Type 2 diabetes mellitus with other diabetic kidney complication (HCC) DIABETIC RETINOPATHY SCREENING - OU - BOTH YEEVNvbpbka43/08/2025 9:49 AM EST MNMUXKNSFTFVyurjxb29/19/2015 12:00 PM EST from Last 3 Months or Most Recently Relevant to Health Maintenance Results * SRMCOH PROTHROMBIN TIME INR W/O COUM (10/22/2025 8:45 AM EST)ComponentValueRef RangeTest MethodAnalysis TimePerformed AtPathologist SignaturePROTHROMBIN TIME 10.99.0 - 11.6 secTBHTBH INR1.04TBHComment: DESIRED INR: 2.0-3.0 CONDITIONS NOT LISTED BELOW 2.5-3.5 FOR PROSTHETIC HEART VALVE REPLACEMENT 2.5-3.5 RECURRENT THROMBOSIS Specimen (Source)Anatomical Location / LateralityCollection Method / Volume Collection TimeReceived Time10/22/2025 8:45 AM EST10/22/2025 9:05 AM EST Narrative [facility] - 10/22/2025 10:28 AM EST Authorizing ProviderResult TypeResult StatusGeneric External Data Provider CLINISYNCFinal ResultPerforming OrganizationAddressCity/State/ZIP CodePhone Number [facility] * [facility] APTT (10/22/2025 8:45 AM EST)ComponentValueRef RangeTest MethodAnalysis TimePerformed AtPathologist SignaturePARTIAL THROMBOPLASTIN TIME27.922.3 - 36.2 secTBHSpecimen (Source)Anatomical Location / LateralityCollection Method / VolumeCollection TimeReceived Time10/22/2025 8:45 AM EST10/22/2025 9:05 AM EST Narrative [facility] - 10/22/2025 10:28 AM EST Authorizing ProviderResult TypeResult StatusGeneric External Data Provider CLINISYNCFinal ResultPerforming OrganizationAddressCity/State/ZIP CodePhone Number [facility] * (ABNORMAL) ALL CBC WITH AUTO DIFF (10/22/2025 8:45 AM EST)ComponentValueRef RangeTest MethodAnalysis TimePerformed AtPathologist SignatureTBH WBC8.04.0 - 11.0 10 3/uLTBHTBH RBC4.59(L)4.70 - 6.10 10 6/uLTBHTBH HGB15.214.0 - 18.0 g/dL TBHTBH HCT44.142.0 - 54.0 %TBHTBH MCV96.1(H)80.0 - 94.0 fLTBHTBH MCH33.125.9 - 34.0 pgTBHTBH MCHC34.529.9 - 35.2 g/dLTBHTBH RDW11.911.0 - 15.0 %TBHTBH YNL755 150 - 450 10 3/uLTBHTBH MPV9.99.5 - [...] TypeResult StatusGeneric External Data Provider CLINISYNCFinal ResultPerforming OrganizationAddUniversity of Pennsylvania Health Systemty/State/ZIP CodePhone Number [facility] * (ABNORMAL) ALL BASIC METABOLIC PANEL (10/22/2025 8:45 AM EST)ComponentValueRef RangeTest MethodAnalysis TimePerformed AtPathologist TqqetjojfXXGWCV970724 - 145 mmol/LTBHPOTASSIUM4.13.5 - 5.1 mmol/LOEALICLBJRN85178 - 107 mmol/LTBH CARBON EQWVFOK05.721.0 - 32.0 mmol/LTBHANION GAP11.9NWUTLYGRVG513(H)74 - 106 mg/dLTBHBLOOD UREA EOVIKFPT82.07.0 - 18.0 mg/dLTBHCREATININE0.910.70 - 1.30 mg/dLTBHTBH EGFR-AF MACANESE>60>=60 mL/min/1.73m 2TBHTBH EGFR-NON AF MACANESE >60>=60 mL/min/1.73m 2TBHBUN CREATININE RATIO16.5PWJRIAZRCJ5.28.5 - 10.1 mg/dL TBHSpecimen (Source)Anatomical Location / LateralityCollection Method / Volume Collection TimeReceived Time10/22/2025 8:45 AM EST10/22/2025 9:05 AM EST Narrative [facility] - 10/22/2025 9:54 AM EST Authorizing ProviderResult TypeResult StatusGeneric External Data Provider CLINISYNCFinal ResultPerforming OrganizationAddEn[facility]/State/ZIP CodePhone Number [facility] * ECG 12-LEAD (10/22/2025 7:51 AM EST)Anatomical RegionLateralityModalityOther Specimen (Source)Anatomical Location / LateralityCollection Method / Volume Collection TimeReceived Time10/22/2025 7:51 AM EST Narrative 10/23/2025 4:42 PM EST [facility] ?[address] ? [place] [address] ? Electrocardiograph Report ? Signed ? Patient: DIPESH POWERS ?MR#: [id number] ?? : 1965 ?Acct:[id number] ?? Age/Sex: 59 / M ?ADM Date: 12/15/25 ?? Loc: PST ? Attending Dr: Shady Jara M.D. ? Ordering Physician: Jara,Shady M.D. ?? Date of Service: 10/22/25 ?? Procedure(s): ECG 12 lead ?? Accession Number(s): [id number] ? cc: ?[facility] ? Test Date: ?2025-10-22 ?? Pat Name: ? DIPESH POWERS ? Department: ? Room: ? - ?? Gender: ? Male ? Coding File Clerk: ? : ?1965 ? Requested By: SHADY AIDEN ?? Order Number: [id number] ?Reading MD: ?? NIKUNJ ELLIS ? Measurements ?? Intervals ?Brooks ? Rate: ? 64 ? P: ?43 ?? TN: ? 182 ?QRS: ?-37 ?? QRSD: ? 148 ?T: ?34 ?? QT: ? 404 ? QTc: ?418 ? Interpretive Statements ?? SINUS RHYTHM ?? MARKED LEFT AXIS DEVIATION [QRS AXIS < -30] RIGHT BUNDLE BRANCH BLOCK [120+ ms QRS DURATION, UPRIGHT V1, 40+ ms S IN ?? I/aVL/V4/V5/V6] ?? Compared to ECG 12/30/2016 19:58:02 ?? Left-axis deviation now present ?? Right bundle-branch block now present ?? Sinus tachycardia no longer present ?? Indeterminate axis no longer present ?? Electronically Signed On 10-23-2025 16:42:40 EST by NIKUNJ ELLIS ? Dictated By: ?Nikunj Ellis M.D. ? Signed By: ?16/25 1642 ? DD/ 0751 ? TD/TT: ? Produce Service Team Member: Procedure Note Radiology, Radiologist, - 10/23/2025 [place] [address] Electrocardiograph Report Signed Patient: DIPESH POWERS KMR#: [id number] : 1965Acct:[id number] Age/Sex: 59 / MADM Date: 10/22/25 Loc: PST Attending Dr: Shady Jara M.D. Ordering Physician: Shady Jara M.D. Date of Service: 10/22/25 Procedure(s): ECG 12 lead Accession Number(s): [id number] cc: [facility] Test Date: 2025-10-22 Pat Name: DIPESH POWERS Department: Room: - Gender: Male Coding File Clerk: : 1965 Requested By: SHADY JARA Order Number: [id number] Reading MD: NIKUNJ ELLIS Measurements Intervals Brooks Rate: 64 P: 43 TN: 182 QRS: -37 QRSD: 148 T: 34 QT: 404 QTc: 418 Interpretive Statements SINUS RHYTHM MARKED LEFT AXIS DEVIATION [QRS AXIS < -30] RIGHT BUNDLE BRANCH BLOCK [120+ ms QRS DURATION, UPRIGHT V1, 40+ ms S IN I/aVL/V4/V5/V6] Compared to ECG 12/30/2016 19:58:02 Left-axis deviation now present Right bundle-branch block now present Sinus tachycardia no longer present Indeterminate axis no longer present Electronically Signed On 10-23-2025 16:42:40 EST by NIKUNJ ELLIS Dictated By: Nikunj Ellis M.D. Signed By:10/23/25 1642 DD/ 0751 TD/TT: Produce Service Team Member: Authorizing ProviderResult TypeResult StatusGeneric External Data Provider [facility]IN[facility]NC IMAGINGFinal Result * MR shoulder right wo IV contrast (10/09/2025 2:20 PM EST)Anatomical Region LateralityModalityUpper Extremities, ShoulderRightMagnetic ResonanceSpecimen (Source)Anatomical Location / LateralityCollection Method / VolumeCollection TimeReceived Time10/09/2025 2:35 PM EST Impressions 10/09/2025 2:42 PM EST Full-thickness rotator cuff tearing involving supraspinatus and subscapularis as discussed. ELECTRONICALLY SIGNED BY: Poli Neri MD Narrative 10/09/2025 2:42 PM EST EXAMINATION/TECHNIQUE: MR SHOULDER RIGHT WO IV CONTRAST HISTORY: Right shoulder pain. COMPARISON: MRI from 2021. RESULT: Some limitations from motion. Rotator Cuff Tendons: Moderate tendinosis involving supraspinatus, with small area of apparent full-thickness tearing distally measuring around 9 mm in AP dimension, with other intact appearing adjacent fibers. Areas of reactive cystic change at the insertion. Mild tendinosis involving infraspinatus with areas of interstitial tearing, without full-thickness tear. Apparent full-thickness tearing involving the superior fibers of subscapularis, with underlying tendinosis. Teres minor grossly intact. Long Head Biceps Tendon: Portions of the intra-articular portion not well visualized, could be tornor obscured by motion. Muscle: Mild volume loss of supraspinatus. Mild to moderate volume loss of subscapularis. Labrum: Areas of fraying/tearing. Bones and Marrow: No evidence of fracture or bone marrow replacing process. Glenohumeral Joint: Osteophytes with at least mild degenerative changes. Small joint effusion. Acromioclavicular Joint: Mild degenerative changes. Undersurface osteophytes. Joint effusion. Probable postsurgical changes. Other: No other significant abnormality. ?? Procedure Note Poli Neri MD - 10/09/2025 EXAMINATION/TECHNIQUE: MR SHOULDER RIGHT WO IV CONTRAST HISTORY: Right shoulder pain. COMPARISON: MRI from 2021. RESULT: Some limitations from motion. Rotator Cuff Tendons: Moderate tendinosis involving supraspinatus, withsmall area of apparent full-thickness tearing distally measuring around 9mm in AP dimension, with other intact appearing adjacent fibers. Areas ofreactive cystic change at the insertion. Mild tendinosis involvinginfraspinatus with areas of interstitial tearing, without full-thicknesstear. Apparent full-thickness tearing involving the superior fibers ofsubscapularis, with underlying tendinosis. Teres minor grossly intact. Long Head Biceps Tendon: Portions of the intra-articular portion not well visualized, could be torn or obscured by motion. Muscle: Mild volume loss of supraspinatus. Mild to moderate volume loss of subscapularis. Labrum: Areas of fraying/tearing. Bones and Marrow: No evidence of fracture or bone marrow replacingprocess. Glenohumeral Joint: Osteophytes with at least mild degenerative changes.Small joint effusion. Acromioclavicular Joint: Mild degenerative changes. Undersurfaceosteophytes. Joint effusion. Probable postsurgical changes. Other: No other significant abnormality. IMPRESSION: Full-thickness rotator cuff tearing involving supraspinatus andsubscapularis as discussed. ELECTRONICALLY SIGNED BY: Poli Neri MD Authorizing ProviderResult TypeResult StatusTony Thomas NPIMG MRI PROCEDURES Final Result * TN ARTHROCENTESIS ASPIR&/INJ MAJOR JT/BURSA W/O US (09/27/2025 12:23 PM EST) Narrative Tony Thomas NP - 09/27/2025 12:23 PM EST Tony Thomas NP 09/27/2025 12:23 PM L Inj/Asp: R subacromial bursa on 09/27/2025 12:23 PM Indications: pain Details: 20 G needle, posterior approach Medications: 40 mg methylPREDNISolone acetate 40 MG/ML Outcome: tolerated well, no immediate complications Site cleaned with isopropyl alcohol. Procedure, treatment alternatives, risks and benefits explained, specific risks discussed. Consent was given by the patient. Authorizing ProviderResult TypeResult StatusTony Thomas NPIN CLINIC/BEDSIDE ORDERABLESFinal Result * XR abdomen 1 view (08/10/2025 9:25 AM EDT)Anatomical RegionLateralityModality AbdomenRadiographic ImagingSpecimen (Source)Anatomical Location / Laterality Collection Method / VolumeCollection TimeReceived Time08/10/2025 1:18 PM EDT Impressions 08/10/2025 1:20 PM EDT Bilateral renal calculi. ELECTRONICALLY SIGNED BY: Julian Bateman DO Narrative 08/10/2025 1:20 PM EDT EXAMINATION: XR ABDOMEN 1 VIEW HISTORY: Kidney Stone TECHNIQUE: Frontal view of the abdomen and pelvis obtained COMPARISON: None available FINDINGS: Approximately 6 calcifications project over the left renal shadow, the largest of which measures approximately 4 mm. Approximately 7 calcifications project over the right renal shadow, the largest ofwhich measures approximately 4 mm. No calcifications identified along the expected course of eitherureter. Pelvic phleboliths are noted. Nonobstructive bowel gas pattern. No evidence of free air. Degenerative changes of the spine. Chronic deformity of the right inferior pubic ramus. No acute osseous abnormality. Procedure Note Julian Bateman DO - 08/10/2025 EXAMINATION: XR ABDOMEN 1 VIEW HISTORY: Kidney Stone TECHNIQUE: Frontal view of the abdomen and pelvis obtained COMPARISON: None available FINDINGS: Approximately 6 calcifications project over the left renal shadow, thelargest of which measures approximately 4 mm. Approximately 7calcifications project over the right renal shadow, the largest of whichmeasures approximately 4 mm. No calcifications identified along theexpected course of either ureter. Pelvic phleboliths are noted.Nonobstructive bowel gas pattern. No evidence of free air. Degenerativechanges of the spine. Chronic deformity of the right inferior pubic ramus.No acute osseous abnormality. IMPRESSION: Bilateral renal calculi. ELECTRONICALLY SIGNED BY: Julian Bateman DO Authorizing ProviderResult TypeResult StatusShady GONZALEZ XR PROCEDURES Final Result * Microalbumin / creatinine urine ratio (08/10/2025 9:18 AM EDT)ComponentValue Ref RangeTest MethodAnalysis TimePerformed AtPathologist SignatureCREATININE, RANDOM KKEVK1138 - 320 mg/dLQUESTALBUMIN, URINE<0.2See Note: mg/dLQUEST Comment: Reference Range: Reference Range Not established ALBUMIN/CREATININE RATIO, RANDOM URINENOTE<30 mg/g creatQUESTComment: NOTE: The urine albumin value is less than 0.2 mg/dL therefore we are unable to calculate excretion and/or creatinine ratio. The ADA defines abnormalities in albumin excretion as follows: Albuminuria Category ?Result (mg/g creatinine) Normal to Mildly increased <30 Moderately increased ? 30-299 Severely increased > OR = 300 The ADA recommends that at least two of three specimens collected within a 3-6 month period be abnormal before considering a patient to be within a diagnostic category. Specimen (Source)Anatomical Location / LateralityCollection Method / Volume Collection TimeReceived TimeUrineUrine specimen obtained by clean catch procedure / Ivrugmy7708/10/2025 9:18 AM EDT1 3:07 PM EDT Narrative [facility] - 08/11/2025 3:59 PM EDT SPLIT 08/10/2025 FROM [id number] Resulting Agency Comment Performing Organization Information ?Site ID: QPT ?Name: [employer] [facility] ?Address: [address] [place] [address], [address] [place] [phone] ?Director: Danyel Puente MD Authorizing ProviderResult TypeResult StatusEdrichi Dee MDLAB URINE ORDERABLESFinal ResultPerforming OrganizationAddressCity/State/ZIP CodePhone Number [facility] * (ABNORMAL) Hemoglobin A1c (08/10/2025 8:52 AM EDT)ComponentValueRef RangeTest MethodAnalysis TimePerformed AtPathologist SignatureHemoglobin A1C6.8(H)<5.7 % QUESTComment: For someone without known diabetes, a hemoglobin A1c value of 6.5% or greater indicates that they may have diabetes and this should be confirmed with a follow-up test. For someone with known diabetes, a value <7% indicates that their diabetes is well controlled and a value greater than or equal to 7% indicates suboptimal control. A1c targets should be individualized based on duration of diabetes, age, comorbid conditions, and other considerations. Currently, no consensus exists regarding use of hemoglobin A1c for diagnosis of diabetes for children. Specimen (Source)Anatomical Location / LateralityCollection Method / Volume Collection TimeReceived TimeBloodVenous blood specimen / Gkvyjkg8708/10/2025 8:52 AM EDT1 3:07 PM EDT Narrative [facility] - 08/11/2025 1:29 AM EDT COLLECTION KIT GIVEN TO PATIENT. PATIENT ADVISED TO RETURN. Resulting Agency Comment Performing Organization Information ?Site ID: QPT ?Name: [employer] [facility] ?Address: [address] [place] [address], [address] [place] [phone] ?Director: Danyel Puente MD Authorizing ProviderResult TypeResult StatusEdrichi Dee MDLAB BLOOD ORDERABLESFinal ResultPerforming OrganizationAddressCity/State/ZIP CodePhone Number [facility] * Diabetic Retinopathy Screening - OU - Both Eyes (11/15/2024 9:49 AM EST) Anatomical RegionLateralityModalityHeadOther Narrative Authorizing ProviderResult TypeResult Marcy Dee MDOPHTH PHOTOGRAPHY Final Result * Colonoscopy (11/26/2014 12:00 PM EST)Anatomical RegionLateralityModality EndoscopySpecimen (Source)Anatomical Location / LateralityCollection Method / VolumeCollection TimeReceived Time11/26/2014 12:00 PM EST Narrative 12/12/2015 12:00 PM EST PERFORMED AT [facility] LOCATION:[id number] Abnormal Procedure Note CONVERSION, GENERIC - 03/25/2023 PERFORMED AT [facility] LOCATION:[id number] Abnormal Authorizing ProviderResult TypeResult Marcy Dee MDENDOSCOPY PROCEDURE ORDERABLESFinal Result from Last 3 Months or Most Recently Relevant to Health Maintenance Insurance Care Teams Team MemberRelationshipSpecialtyStart DateEnd Gilberto Dee MD [address] [place] [id number] PCP - GeneralFamily Medicine05/19/23 Shady Jara MD [address] [place] [address] Referring XnaomvwaxXbxhgys90/17/25 Sasha Longo MD [address] [place] [address] Referring PhysicianPain Hnwdgzco48/17/25 Tony Thomas [employer] [address] [place] [address] Nurse PractitionerOrthopaedic Wpwtkhq70/17/25 Rigo Barkley, PT [address] [place] [phone] Physical TherapistPhysical Jwcgqqi90/17/25
--- OUTSIDE RECORDS SUMMARY | 2025-10-30 06:48 | XMS_ITS | Encounter Summary ---
Author Organization [facility] Address [address] [place] [address] Care Team Providers Care Frame Straightener Name Role Phone Gilberto Dee MD Primary Care Provider + [phone] Encounter Details DateTypeDepartmentCare Team (Latest Contact Info)Myzaqynxdic79/15/2025linisync Result Encounter [facility] Unsolicited Provider, [...] relatives?Once a week08/01/2023How often do you attend rastafarian or catholic services?Patient zdcraktr08/24/2023Do you belong to any clubs or organizations such as rastafarian groups, unions, fraternal or athletic sandi ups, [...] at all 08/01/2023HQ-2AnswerDate RecordedPatient Health Questionnaire-2 Score0 09/03/2025[place] [facility] - Occupational Stress QuestionnaireAnswerDate [...] steady place to sleep or slept in [facility] (including now)?No08/01/2023Sex and Gender InformationValueDate RecordedSex Assigned at BirthNot on fileLegal SexMale 01/20/2023 6:53 PM EDTGender IdentityNot on fileSexual OrientationNot on file documented as of this encounter Plan of Treatment DateTypeDepartmentCare Team (Latest Contact Info)Xqmnkgaoxya56/20/2026 8:00 AM EDTOffice Visit [facility] [facility] [address] [facility] [address] [place] [address] Giblerto Dee MD [address] [facility] [address] [place] [address] documented as of this encounter Procedures Procedure NamePriorityDate/TimeAssociated DiagnosisCommentsECG 12-LEAD10/22/2025 7:51 AM EST documented in this encounter Results * ECG 12-LEAD (10/22/2025 7:51 AM EST)Anatomical RegionLateralityModalityOther Specimen (Source)Anatomical Location / LateralityCollection Method / Volume Collection TimeReceived Time10/22/2025 7:51 AM EST Narrative 10/23/2025 4:42 PM EST [facility] ?[address] ? [place] [address] ? Electrocardiograph Report ? Signed ? Patient: DIPESH POWERS Zofia ?MR#: [id number] ?? : 1965 ?Acct:[id number] ?? Age/Sex: 59 / M ?ADM Date: 10/22/25 ?? Loc: PST ? Attending Dr: Jaden Wolfe M.D. ? Ordering Physician: Jaden Wolfe M.D. ?? Date of Service: 10/22/25 ?? Procedure(s): ECG 12 lead ?? Accession Number(s): [id number] ? cc: ?[facility] ? Test Date: ?2025-10-22 ?? Pat Name: ? DIPESH POWERS ? Department: ? Room: ? - ?? Gender: ? Male ? Legal Internship: ? : ?1965 ? Requested By: JADEN WOLFE ?? Order Number: [id number] ?Reading MD: ?? HAMILTON ELLIS ? Measurements ?? Intervals ?[place] ? Rate: ? 64 ? P: ?43 ?? [place]: ? 182 ?QRS: ?-37 ?? QRSD: ? [...] Electronically Signed On 10-23-2025 16:42:40 EST by HAMILTON ELLIS ? Dictated By: ?Hamilton Ellis M.D. ? Signed By: ?/16/25 1642 ? DD/ 0751 ? TD/TT: ? Strategic Partner Development Manager: Procedure Note Radiology, Radiologist, MD - 10/23/2025 [place] [address] Electrocardiograph Report Signed Patient: DIPESH POWERS KMR#: [id number] : 1965Acct:[id number] Age/Sex: 59 / MADM Date: 10/22/25 Loc: [facility] Attending Dr: Jaden Wolfe M.D. Ordering Physician: Jaden Wolfe M.D. Date of Service: 10/22/25 Procedure(s): ECG 12 lead Accession Number(s): [id number] cc: [facility] Test Date: 2025-10-22 Pat Name: DIPESH POWERS Department: Room: - Gender: Male Legal Internship: : 1965 Requested By: JADEN WOLFE Order Number: [id number] Otis MD: HAMILTON ELLIS Measurements Intervals [place] Rate: 64 P: 43 [place]: 182 QRS: -37 QRSD: 148 T: 34 [...] Electronically Signed On 10-23-2025 16:42:40 EST by HAMILTON ELLIS Dictated By: Hamilton Ellis M.D. Signed By:10/23/25 1642 DD/ 0751 TD/TT: Strategic Partner Development Manager: Authorizing ProviderResult TypeResult StatusGeneric External Data Provider [facility] IMAGINGFinal Result documented in this encounter Visit Diagnoses Not on filedocumented in this encounter Care Teams Team MemberRelationshipSpecialtyStart DateEnd Date Gilberto Dee MD [address] [place] [phone] PCP - GeneralFamily Medicine05/19/23documented as of this encounter
[2025-10-30] MEDS: SCOPOLAMINE 1 MG/3 DAYS TRANSDERM PATCH 1 PATCH TD (07:22)
--- NOTE | 2025-10-30 07:30 | XR_ITS ---
The [address] [address] Patient Name: DIPESH RODRIGEZ MRN: [id number] date: 1965 Sex: M Assigned Patient Location: [facility] Current Patient Location: [facility] Accession/Order Number: [id number] Exam Date: 10/30/2025 06:50 Report Date: 10/30/2025 08:52 At the request of: JADEN WOLFE MD Procedure: XR abdomen 1V SINGLE VIEW ABDOMEN COMPARISON: 09/17/2023 CLINICAL DATA: Preoperative evaluation for lithotripsy. Kidney stones. Supine views of the abdomen and pelvis were obtained. There is air and stool within the colon. There is small bowel air, without disproportionate distention. There are multiple small calcified bilateral renal stones measuring up to 4 - 5 mm in size. Pelvic phleboliths are visualized. There is also question of a 4 mm stone at the distal right ureter. No soft tissue masses are seen. There is levoscoliotic curvature and degenerative changes at the spine. XR/XR abdomen 1V IMPRESSION: MULTIPLE BILATERAL RENAL AND POSSIBLE DISTAL RIGHT URETERAL STONES. Impression dictated by: Kelin Choi M.D. 10/30/2025 8:52 AM Dictation Location: [place] [address] Electronically authenticated by: [id number] Y Date: 10/30/2025 08:52
[2025-10-30] MEDS: CEFAZOLIN SODIUM 2 GM/50 ML D5W PREMIX IV (08:00)
--- NOTE | 2025-10-30 08:44 | P.URON_ITS ---
Urology Surgery Operative Note Operative Note Procedure Date: 10/30/25 Time Out Performed: yes Pre-op Diagnosis: Right nephrolithiasis Post-op Diagnosis: same as pre-op Procedures performed: 1. Right ESWL. Anesthesia: General-LMA Primary Surgeon: Shady Jara Complications: None Estimated blood loss (mL): 0 Findings: Several right renal calculi Specimens: None Drains: None Indications for Procedures: This gentleman has recurrent bilateral nephrolithiasis. The largest burden seems to be on the right side. By KUB he has approximately 7 calcifications in the right kidney and the largest is about 4 mm. He now presents for right ESWL. He has signed an informed consent after risks were explained. Some of these risks include bleeding, perinephric hematoma, infection and anesthesia to name a few. Detailed description of Procedure: The patient was brought to the Operating Room and placed on Siemens electromagnetic lithotripsy treatment table in the supine position. SCDs were placed on their lower extremities and turned on and functioning during the entire case. Timeout was done by all parties in the room. We all agreed upon the patient's identification and the planned procedures for this patient. General Anesthesia was then administered via LMA. Treatment head was then brought to the patient's correct side. While using flourscopy the cephalad most group of stones was identified and lined up into the crosshairs. We then began applying shocks. We started at a power level 2.0 and increased to a maximum power level of 3.5. Intermittent fluoroscopy revealed that the stones slowly steadily fragmented. We applied a total of 2000 shocks to this group of stones and had fairly good fragmentation. We then lined up the lower pole smaller group and similarly applied shocks. This time we only applied 1000 shocks. The last fluoroscopic view revealed that there was still some solid stone pieces within the lower pole and much smaller fragments in the upper pole. The procedure was terminated. He was then transferred to a rsolomons bed and wheeled to PACU in stable condition. The plan is that he will come back for a left-sided treatment in a few weeks. We will then decide if he requires a second treatment on the right.
--- NOTE | 2025-10-30 10:32 | PC.NURSE ---
1025:pt voids without difficulty,urine strained no stones present.
== END 2025-10-30 10:35 | disposition home or self-care (01) ==
LOC: SURGOUT 06:45
PROVIDERS: PCP Family Medicine; Visit Provider Urology
PROC: (CPT 873; principal; 2025-10-30 08:00)
DX: N20.0 Calculus of kidney (principal); N40.0 Benign prostatic hyperplasia without lower urinary tract symptoms; R97.20 Elevated prostate specific antigen [PSA]; E11.9 Type 2 diabetes mellitus without complications; I10 Essential (primary) hypertension; Z79.84 Long term (current) use of oral hypoglycemic drugs; Z96.651 Presence of right artificial knee joint; E78.5 Hyperlipidemia, unspecified; K21.9 Gastro-esophageal reflux disease without esophagitis; K50.90 Crohn's disease, unspecified, without complications; M19.90 Unspecified osteoarthritis, unspecified site
CPT/HCPCS: 50590; 36415; 74018; 82948; J0690; J1100; J1885; J2250; J2405; J2704; J3010